=== PATIENT | male | born 1970 | race Caucasian/White ===

== ENCOUNTER 2024-09-11 10:29 | Emergency (ER) | payer SELFPAY ==
--- NOTE | ~2024-09-11 | XR_ITS ---
CHEST RADIOGRAPH, PA AND LATERAL CLINICAL HISTORY: cough WITH FEVER X 2 DAYS . COMPARISON: None available TECHNIQUE: PA and lateral views of the chest. FINDINGS The cardiomediastinal silhouette is unremarkable. Right upper lobe infiltrate. The remainder of the lungs are clear. IMPRESSION: Right upper lobe infiltrate Reviewed, dictated and finalized at location A. [facility]ROLOGY IMPRESSION: Right upper lobe infiltrate
[2024-09-11 10:31] VITALS: BP 119/70; PULSE 92; RESP 20; TEMP 36.3; O2SAT 98
[2024-09-11 13:05] VITALS: BP 105/65; PULSE 86; RESP 16; TEMP 36.8; O2SAT 97
--- NOTE | 2024-09-11 13:57 | ED.GENADULT ---
HPI - General Adult General Chief complaint: Unspecified Stated complaint: insomnia Time Seen by Provider: 09/11/24 15:41 Focused HPI: This is a 54-year-old male who presents to the ED for chief complaint of cough. States that he has productive cough and this is causing troubles with sleeping. States that he was admitted to another hospital a few weeks ago for drug overdose. He states that he has rib pain from CPR. He is currently at the rehab facility. GENERAL: Well-appearing, well-nourished, and in no acute distress. HEAD: Normocephalic, atraumatic. CHEST: Clear to auscultation. No respiratory distress. HEART: Regular rate and rhythm. NEURO: Alert and oriented x3. Patient screened in triage and initial orders placed. Additional care and disposition to be based upon diagnostic testing and treatment. Source: patient Mode of arrival: ambulatory Limitations: no limitations Related Data Allergies Allergy/AdvReac Type Severity Reaction Status Date / Time hydrocodone Allergy Intermediate Hives Verified 09/11/24 10:34 Course Vital Signs Vital signs: Vital Signs Temperature 97.4 F L 09/11/24 10:31 Pulse Rate 92 09/11/24 10:31 Respiratory Rate 20 09/11/24 10:31 Blood Pressure 119/70 09/11/24 10:31 Pulse Oximetry 98 09/11/24 10:31 Oxygen Delivery Room Air 09/11/24 10:31 Temperature 98.3 F 09/11/24 13:05 Pulse Rate 86 09/11/24 13:05 Respiratory Rate 16 09/11/24 13:05 Blood Pressure 105/65 09/11/24 13:05 Pulse Oximetry 97 09/11/24 13:05 Oxygen Delivery Room Air 09/11/24 10:31 Medical Decision Making Vital Signs Vital Signs: Vital Signs Temperature 97.4 F L 09/11/24 10:31 Pulse Rate 92 09/11/24 10:31 Respiratory Rate 20 09/11/24 10:31 Blood Pressure 119/70 09/11/24 10:31 Pulse Oximetry 98 09/11/24 10:31 Oxygen Delivery Room Air 09/11/24 10:31 Temperature 98.3 F 09/11/24 13:05 Pulse Rate 86 09/11/24 13:05 Respiratory Rate 16 09/11/24 13:05 Blood Pressure 105/65 09/11/24 13:05 Pulse Oximetry 97 09/11/24 13:05 Oxygen Delivery Room Air 09/11/24 10:31 Lab Data 09/11/24 15:41 09/11/24 15:41 Labs: Lab Results 09/11/24 Range/Units 15:41 WBC 12.5 H (4.5-10.0) K/mm3 RBC 3.78 L (4.6-6.20) M/mm3 Hgb 10.8 L (14.0-18.0) g/dL Hct 34.2 L (42.0-52.0) % MCV 90.5 (80-100) fl MCH 28.6 (26-34) pg MCHC 31.6 L (32-36) g/dl RDW 13.2 (11.5-14.5) % Plt Count 485 H (150-375) k/mm3 MPV 9.1 (7.4-10.4) fl Immature Gran % (Auto) 1.0 H (0-0.5) % Neut % (Auto) 67.7 (45.5-73.1) % Lymph % (Auto) 16.6 L (18.3-44.2) % [place] % (Auto) 8.3 (2.6-8.5) % Eos % (Auto) 5.9 H (0-4.4) % Baso % (Auto) 0.5 (0.2-1.2) % Lymph # (Auto) 2.07 (0.9-3.2) K/mm3 [place] # (Auto) 1.0 H (0.1-0.6) K/mm3 Eos # (Auto) 0.7 H (0-0.3) K/mm3 Baso # (Auto) 0.1 (0.0-0.1) K/mm3 Abs Immat Gran (auto) 0.12 H (0.00-0.031) K/mm3 Absolute Neuts (auto) 8.5 H (1.3-6.7) K/mm3 Absolute Nucleated RBC 0.000 (0.0-0.012) K/mm3 Nucleated RBC % 0.0 (0.0-0.2) % Sodium Pending Potassium Pending Chloride Pending Carbon Dioxide Pending Anion Gap Pending BUN Pending Creatinine Pending Estim Creat Clear Calc Pending Estimated GFR Pending Glucose Pending Calcium Pending Total Bilirubin Pending AST Pending ALT Pending Alkaline Phosphatase Pending NT-Pro-B Natriuret Pep Pending Total Protein Pending Albumin Pending Lipase Pending Discharge Plan Discharge Patient Language: Bulgarian Follow-up/Referrals: PHYSICIAN,ENGLISH LANGUAGE LEARNER TEACHER [Non-Staff] -
[2024-09-11 15:42] VITALS: RESP 17; O2SAT 100
--- NOTE | 2024-09-11 15:45 | ED.GENADULT ---
HPI - General Adult General Chief complaint: Unspecified Stated complaint: insomnia Time Seen by Provider: 09/11/24 15:41 Source: patient Mode of arrival: ambulatory Limitations: no limitations History of Present Illness HPI narrative: 54 YEARS OLD WHITE MALE CAME TO THE COMPLAINING OF NOT FEELING WELL, LIGHTHEADEDNESS, DIZZINESS, BLURRY VISION, STRESS ANXIETY. PATIENT WAS SEEN HIS PSYCHIATRIST YESTERDAY AND CHANGES MEDICATION. PATIENT BEEN COMPLAINING OF THE ABOVE SYMPTOMS SINCE HIS MEDICATION CHANGED. PATIENT ALSO BEEN COUGHING FOR THE LAST 4-5 WEEKS. PATIENT DENIES ANY FEVER, CHILLS, NAUSEA, VOMITING, DIARRHEA, CONSTIPATION, ABDOMINAL PAIN OR CHEST PAIN OR SHORTNESS OF BREATH. Related Data Allergies Allergy/AdvReac Type Severity Reaction Status Date / Time hydrocodone Allergy Intermediate Hives Verified 09/11/24 10:34 Review of Systems Review of Systems: All systems reviewed & are unremarkable except as noted in HPI and below Exam Narrative: GENERAL APPEARANCE: WELL-DEVELOPED, WELL-NOURISHED SKIN: NORMAL COLOR HEAD: NORMOCEPHALIC, NONTRAUMATIC EYES: CLEAR CONJUNCTIVA ENT: OROPHARYNX NORMAL, EARS NORMAL, NOSE NORMAL NECK: SUPPLE, NONTENDER CHEST AND RESPIRATORY: AIRWAY PATENT, FEW SCATTERED RHONCHI BILATERALLY, NO ACCESSORY MUSCLE USE HEART: REGULAR RATE/RHYTHM ABDOMEN: SOFT, NONTENDER, NO ORGANOMEGALY, QUIET BOWEL SOUNDS VASCULAR: NORMAL PERIPHERAL PULSES, NORMAL CAPILLARY REFILL. MUSCULOSKELETAL: NORMAL RANGE OF MOTION, NONTENDER BACK NEUROLOGIC: ALERT AND ORIENTED ?3, HYDRAULIC MINER BLASTING IS NORMAL TESTED, NO GROSS MOTOR DEFICIT Course Vital Signs Vital signs: Vital Signs Temperature 36.3 C L 09/11/24 10:31 Pulse Rate 92 09/11/24 10:31 Respiratory Rate 20 09/11/24 10:31 Blood Pressure 119/70 09/11/24 10:31 Pulse Oximetry 98 09/11/24 10:31 Oxygen Delivery Room Air 09/11/24 10:31 Temperature 36.8 C 09/11/24 13:05 Pulse Rate 86 09/11/24 13:05 Respiratory Rate 16 09/11/24 13:05 Blood Pressure 105/65 09/11/24 13:05 Pulse Oximetry 97 09/11/24 13:05 Oxygen Delivery Room Air 09/11/24 10:31 Medical Decision Making [facility] Narrative Medical decision making narrative: PATIENT CAME WITH ABOVE SYMPTOMS. PATIENT BILI SECONDARY TO PSYCH MEDICATION CHANGED YESTERDAY VITAL SIGNS ARE STABLE PHYSICAL EXAMINATION REMARKABLE FOR SCATTERED RHONCHI BILATERALLY BLOOD WORKUP TODAY INCLUDES CBC, CMP, LIPASE, BNP SHOWED WBC 12.5 PLATELET 485 ALKALINE PHOSPHATASE 137, OTHERWISE INSIGNIFICANT ABNORMALITY URINALYSIS SHOWED NO EVIDENCE CHEST X-RAY SHOWED RIGHT UPPER LOBE INFILTRATION DIAGNOSIS PNEUMONIA DISCHARGED ON AMOXICILLIN, ALBUTEROL Vital Signs Vital Signs: Vital Signs Temperature 36.3 C L 09/11/24 10:31 Pulse Rate 92 09/11/24 10:31 Respiratory Rate 20 09/11/24 10:31 Blood Pressure 119/70 09/11/24 10:31 Pulse Oximetry 98 09/11/24 10:31 Oxygen Delivery Room Air 09/11/24 10:31 Temperature 36.8 C 09/11/24 13:05 Pulse Rate 86 09/11/24 13:05 Respiratory Rate 16 09/11/24 13:05 Blood Pressure 105/65 09/11/24 13:05 Pulse Oximetry 97 09/11/24 13:05 Oxygen Delivery Room Air 09/11/24 10:31 Lab Data 09/11/24 15:41 09/11/24 15:41 Labs: Lab Results 09/11/24 09/11/24 Range/Units 15:41 15:48 WBC 12.5 H (4.5-10.0) K/mm3 RBC 3.78 L (4.6-6.20) M/mm3 Hgb 10.8 L (14.0-18.0) g/dL Hct 34.2 L (42.0-52.0) % MCV 90.5 (80-100) fl MCH 28.6 (26-34) pg MCHC 31.6 L (32-36) g/dl RDW 13.2 (11.5-14.5) % Plt Count 485 H (150-375) k/mm3 MPV 9.1 (7.4-10.4) fl Immature Gran % (Auto) 1.0 H (0-0.5) % Neut % (Auto) 67.7 (45.5-73.1) % Lymph % (Auto) 16.6 L (18.3-44.2) % [place] % (Auto) 8.3 (2.6-8.5) % Eos % (Auto) 5.9 H (0-4.4) % Baso % (Auto) 0.5 (0.2-1.2) % Lymph # (Auto) 2.07 (0.9-3.2) K/mm3 [place] # (Auto) 1.0 H (0.1-0.6) K/mm3 Eos # (Auto) 0.7 H (0-0.3) K/mm3 Baso # (Auto) 0.1 (0.0-0.1) K/mm3 Abs Immat Gran (auto) 0.12 H (0.00-0.031) K/mm3 Absolute Neuts (auto) 8.5 H (1.3-6.7) K/mm3 Absolute Nucleated RBC 0.000 (0.0-0.012) K/mm3 Nucleated RBC % 0.0 (0.0-0.2) % Sodium 138 (137-145) mmol/L Potassium 4.4 (3.4-5.0) mmol/L Chloride 99 (98-107) mmol/L Carbon Dioxide 30 (22-30) mmol/L Anion Gap 9 (4-12) mmol/L BUN 14 (9-20) mg/dL Creatinine 0.76 (0.7-1.3) mg/dL Estim Creat Clear Calc 103 ml/min Estimated GFR > 60 (59 - ) Glucose 98 (65-110) mg/dL Calcium 9.1 (8.4-10.2) mg/dL Total Bilirubin 0.3 (0.2-1.3) mg/dL AST 17 (17-59) U/L ALT 24 (6-50) U/L Alkaline Phosphatase 137 H (38-126) U/L NT-Pro-B Natriuret Pep 156 H (19.9-100) pg/mL Total Protein 8.0 (6.3-8.2) g/dL Albumin 3.9 (3.5-5.1) g/dL Lipase 20 L (23-300) U/L Urine Color Yellow (Yellow) Urine Appearance Clear (Clear) Urine pH 7.0 (5.0-9.0) Ur Specific [place] 1.016 (1.001-1.035) Urine Protein Negative (Negative) mg/dL Urine Glucose (UA) Negative (Negative) mg/dL Urine Ketones Negative (Negative) mg/dL Ur Blood (Man) Negative (Negative) Urine Nitrate Negative (Negative) Urine Bilirubin Negative (Negative) Urine Urobilinogen 1.0 (<2.0) mg/dL Leukocyte Esterase Rfl Negative (Negative) JAIME/UL Influenza A (RT-PCR) Pending Influenza B (RT-PCR) Pending RSV (RT-PCR) Pending SARS-CoV-2 RNA (RT-PCR) Pending Imaging Data Radiologist's impression: Impressions Chest X-Ray 09/11/24 14:33 IMPRESSION: Right upper lobe infiltrate Critical Care Time Critical Care Time Critical Care Time: No Discharge Plan Discharge Clinical Impression: Pneumonia Patient Disposition: Home, Self-Care Condition: Stable Instructions: Pneumonia (ED) Additional Instructions: RETURN IF SYMPTOMS ARE WORSENING , CALL YOUR FAMILY PHYSICIAN FOR APPOINTMENT, TAKE TYLENOL NEEDED FOR ACHES AND PAIN, CONTINUE HOME MEDICATIONS. Patient Language: Micronesian Prescriptions: New amoxicillin 500 mg tablet 1,000 mg PO Q8H Qty: 42 0RF albuterol sulfate 90 mcg/actuation HFA aerosol inhaler 2 puff inhalation QID PRN (Reason: shortness of breath or wheezing) Qty: 8.5 0RF Follow-up/Referrals: PHYSICIAN,INSPECTOR INSULATION [Non-Staff] - German Ann MD [Physician] - 09/14/24
[2024-09-11 15:49] LABS: Basophils Absolute Auto 0.1 K/mm3 (0.0-0.1); Basophils Percent Auto 0.5 % (0.2-1.2); Eosinophils Absolute Auto 0.7 K/mm3 (0-0.3); Eosinophils Percent Auto 5.9 % (0-4.4); Hematocrit 34.2 % (42.0-52.0); Hemoglobin 10.8 g/dL (14.0-18.0); Immature Granulocyte Absolute 0.12 K/mm3 (0.00-0.031); Lymphocytes Absolute Auto 2.07 K/mm3 (0.9-3.2); Lymphocytes Percent Auto 16.6 % (18.3-44.2); Mean Corpuscular HGB Conc 31.6 g/dl (32-36); Mean Corpuscular Hemoglobin 28.6 pg (26-34); Mean Corpuscular Volume 90.5 fl (80-100); Mean Platelet Volume 9.1 fl (7.4-10.4); Monocytes Percent Auto 8.3 % (2.6-8.5); Neutrophils Absolute Auto 8.5 K/mm3 (1.3-6.7); Neutrophils Percent Auto 67.7 % (45.5-73.1); Platelet Count Result 485 k/mm3 (150-375); Red Blood Count 3.78 M/mm3 (4.6-6.20); Red Cell Distribution Width 13.2 % (11.5-14.5); White Blood Count 12.5 K/mm3 (4.5-10.0)
[2024-09-11 16:01] LABS: Alanine Aminotransferase 24 U/L (6-50); Albumin Level 3.9 g/dL (3.5-5.1); Alkaline Phosphatase 137 U/L (38-126); Anion Gap 9 mmol/L (4-12); Aspartate Amino Transferase 17 U/L (17-59); Bilirubin,Total 0.3 mg/dL (0.2-1.3); Blood Urea Nitrogen 14 mg/dL (9-20); Calcium 9.1 mg/dL (8.4-10.2); Carbon Dioxide 30 mmol/L (22-30); Chloride 99 mmol/L (98-107); Estimated CRCL calculation 103 ml/min; Estimated Glomerular Filt Rate > 60; Glucose 98 mg/dL (65-110); Lipase 20 U/L (23-300); Potassium 4.4 mmol/L (3.4-5.0); Sodium 138 mmol/L (137-145)
[2024-09-11 16:06] LABS: Add Urine Microscopic? NO; Appearance Urine Clear (Clear); Bilirubin Urine Negative (Negative); Blood Urine Negative (Negative); Color Urine Yellow (Yellow); Glucose Urine UA Negative (Negative); Ketones Urine Negative (Negative); Leukocyte Esterase Ur Negative LEU/UL (Negative); Nitrate Urine Negative (Negative); Protein Urine Negative (Negative); Specific Grav Ur 1.016 (1.001-1.035)
[2024-09-11 16:09] LABS: NT Pro B Type Natriuretic Pept 156 pg/mL (19.9-100)
[2024-09-11 16:34] LABS: Influenza A QL RT-PCR Negative (Negative); Influenza B QL RT-PCR Negative (Negative); RSV RNA, RT-PCR Negative (Negative); SARS-CoV-2 RNA PCR Negative (Negative)
[2024-09-11] MEDS: levoFLOXacin 750 MG TABLET PO (17:03)
--- OUTSIDE RECORDS SUMMARY | 2024-09-11 18:18 | XMS_ITS | Referral Summary ---
Author Organization [facility] Address [address] [place] [id number] Care Team Providers Care Supervisor Corduroy Cutting Name Role Phone No, Provider Primary Care Provider Unavailabl e Miscellaneous, Not In File Unavailable Unava ilable Encounters Date Type Department Care Team Description 08/23/2024 [facility] Outreach [facility] Warm [facility] Off [facility] [address] [place] [address] Adela Lynn 08/13/2024 8:34 PM [employer] - 08/21/2024 12:11 PM [employer] Hospital Encounter [address] [address] Wilton Eng MD Bezuneh, MD [place] Thornton, Jean Anders MD Opioid withdrawal (HCC) (Primary Dx); Amphetamine abuse (HCC); Tinea cruris; Chest wall pain Discharge Disposition: Discharge to not defined facility 08/13/2024 [facility] Enrollment [facility] Warm [facility] Off [facility] [address] [place] [address] Flakita Enriquez 08/13/2024 [facility] Initial Eligibility [facility] [address] [place] [address] Flakita Enriquez from Last 3 Months Allergies Active Allergy Reactions Criticality Noted Date Comments Hydrocodone Itching,Rash Medium 08/11/2016 Reaction: ITCHING, Reaction: Rash, Reaction: ITCHING, Reaction: Rash, Medications tamsulosin (FLOMAX) 0.4 mg extended release capsule Take 1 capsule (0.4 mg total) by mouth daily with dinner 30 capsule 08/21/19 25 025 Active nicotine (NICODERM CQ) [address] 1 patch on the skin daily 30 patch 08/22/19 25 025 Active nicotine polacrilex (NICORETTE) 2 mg gum Chew 1 each (2 mg total) every 4 (four) hours as needed for smoking cessation 100 each 08/21/19 25 025 Active lidocaine (LIDODERM) 5 % Place 2 patches on the skin daily for 7 days Remove & discard patch within 12 hours or as directed by MD. 7 patch 08/21/19 25 Active meloxicam (MOBIC) 7.5 mg tablet Take 1 tablet (7.5 mg total) by mouth daily for 14 days 14 tablet 08/21/[address] (PROTONIX) 40 mg EC tabletIndications: Mucositis Prophylaxis Take 1 tablet (40 mg total) by mouth daily for 14 days 14 tablet 08/22/19 25 Active miconazole 2 % cream Apply topically 2 (two) times a day 28.35 g 08/21/19 25 Active hydrOXYzine (ATARAX) 50 mg tabletIndications: anxiety,lacrimatio n, rhinorrhea Take 1 tablet (50 mg total) by mouth 3 (three) times a day as needed for anxiety (lacrimation, rhinorrhea) for up to 7 days 21 tablet 08/21/19 25 Active acetaminophen 500 mg capsuleIndications :Pain Take 2 capsules (1,000 mg total) by mouth every 6 (six) hours 08/21/19 25 Active busPIRone (BUSPAR) 15 mg tabletIndications: Generalized Anxiety Disorder 02/24/20 17 025 Discontinu ed(Error) busPIRone (BUSPAR) 10 mg tabletIndications: Generalized Anxiety Disorder 12/30/19 17 025 Discontinu ed(Error) citalopram (CeleXA) 40 mg tablet 02/24/20 17 025 Discontinu ed(Error) citalopram (CeleXA) 20 mg tablet 11/25/19 17 025 Discontinu ed(Error) ondansetron ODT (ZOFRAN-ODT) 4 mg disintegrating tablet Take 4 mg by mouth every 6 hours. 08/11/19 17 025 Discontinu ed(Error) QUEtiapine (SEROquel) 100 mg tablet 01/27/20 17 025 Discontinu ed(Error) QUEtiapine (SEROquel) 50 mg tablet 11/25/19 17 025 Discontinu ed(Error) QUEtiapine (SEROquel) 200 mg tablet 02/24/20 17 025 Discontinu ed(Error) raNITIdine (ZANTAC) 150 mg tablet 02/04/20 17 025 Discontinu ed(Error) terbinafine (LamiSIL) 250 mg tablet 02/04/20 17 025 Discontinu ed(Error) meloxicam (MOBIC) 15 mg tablet Take 1 tablet (15 mg total) by mouth daily. 30 tablet 11 03/02/20 17 025 Discontinu ed(Stop Taking at Discharge) atorvastatin (LIPITOR) 20 mg tablet 09/21/19 18 025 Discontinu ed(Error) tamsulosin (FLOMAX) 0.4 mg extended release capsule 09/21/19 18 025 Discontinu ed(Error) traZODone (DESYREL) 100 mg tablet 09/21/19 18 025 Discontinu ed(Error) ibuprofen (ADVIL,MOTRIN) 800 mg tablet Take 1 tablet (800 mg total) by mouth 3 (three) times a day Take with food. 30 tablet 01/30/20 20 025 Discontinu ed(Error) methocarbamoL (ROBAXIN) 750 mg tabletIndications: Muscle Spasm Take 2 tablets (1,500 mg total) by mouth 3 (three) times a day as needed for muscle spasms for up to 7 days 42 tablet 08/21/19 25 025 Active Problems Problem Noted Date Diagnosed Date Tinea cruris 08/21/2024 Closed fracture of one rib of left side 08/21/19 Opioid withdrawal 08/13/2024 Social History Tobacco Use Types Packs/Day Years Used Date Smoking Tobacco: Every Day Smokeless Tobacco: Current [facility] Utilities Answer Date Recorded In the past 12 months has th e [employer], [employer], or [employer] threatened to shut off services in your home? No 08/14/2024 Social Connection and Isolation Panel [NHANES] A nswer Date Recorded In a typical week, how many times do you talk on the phone with family, friends, or neighbors? Three times a week 08/14/2024 How often do you get togethe r with friends or relatives? Three times a week 08/14/2024 How often do you attend chur ch or lutheran services? Never 08/14/2024 Do you belong to any clubs o r organizations such as rastafarian groups, unions, fraternal or athletic groups, or school groups? No 08/14/2024 How often do you attend meet ings of the clubs or organizations you belong to? Never 08/14/2024 Are you , , di vorced, , never , or living with a partner? Never 08/14/2024 Overall Financial Resource Strain (CARDIA) Answe r Date Recorded How hard is it for you to pa y for the very basics like food, housing, medical care, and heating? Somewhat hard 08/14/2024 Hunger Vital Sign Answer Date Recorded Within the past 12 months, y ou worried that your food would run out before you got the money to buy more. Never true 08/14/19 25 Within the past 12 months, t he food you bought just didn't last and you didn't have money to get more. Never true 08/14/2024 PRAPARE - Transportation Answer Date Re corded In the past 12 months, has l ack of transportation kept you from medical appointments or from getting medications? No 07/19 In the past 12 months, has l ack of transportation kept you from meetings, work, or from getting things needed for daily living? No 08/14/2024 Housing Stability Vital Sign Answer Vazquez e Recorded In the last 12 months, was t here a time when you were not able to pay the mortgage or rent on time? Yes 08/14/2024 In the past 12 months, how m any times have you moved where you were living? 2 08/14/2024 At any time in the past 12 m [facility], were you homeless or living in a retirement (including now)? No 08/14/2024 Personal Safety Answer Date Recorded Have you ever been in or are you currently in a harmful physical or emotional relationship or is someone making you feel afraid or unsafe? Denies 08/14/2024 Sex and Gender Information Value Date Recorded Sex Assigned at Not on file Legal Sex Male 5:32 AM [employer] Gender Identity Not on file Sexual Orientation Not on file Last Filed Vital Signs Vital Sign Reading Time Taken Comments Blood Pressure 108/76 08/21/2024 8:18 AM [employer] Pulse 77 08/21/2024 8:18 AM [employer] Temperature 36.8 C (98.2 F) 08/21/2024 8:18 AM [employer] Respiratory Rate 18 08/21/2024 8:18 AM [employer] Oxygen Saturation 97% 08/21/2024 8:18 AM [employer] Inhaled Oxygen Concentration - - Weight 63.5 kg (140 lb) 08/13/2024 11:50 PM [employer] Height 175.3 cm (5' 9 ) 08/13/2024 11:50 PM [employer] Body Mass Index 20.67 08/13/2024 11:50 PM [employer] Plan of Treatment Not on file Procedures Procedure Name Priority Date/Time Associated Diagnosis Comments CT CHEST WO CONTRAST IP Routine 08/17/2024 1:55 PM [employer] XR CHEST 1 VIEW IP Routine 08/17/2024 9:55 AM [employer] DIFFERENTIAL AUTO Routine 08/17/2024 8:3 2 AM [employer] CBC WITH AUTO DIFFERENTIAL Routine 08/17/2024 8:32 AM [employer] EGFR Routine 08/15/2024 9:24 AM [employer] BASIC METABOLIC PANEL Routine 08/15/2024 9:24 AM [employer] HIV 1/2 ANTIBODY PLUS P24 ANTIGEN Routine 08/14/2024 10:37 AM [employer] HEPATITIS PANEL, ACUTE Routine 08/14/2024 10:37 AM [employer] CBC WITHOUT DIFFERENTIAL Routine 08/14/2024 5:34 AM [employer] EGFR Routine 08/14/2024 4:37 AM [employer] COMPREHENSIVE METABOLIC PANEL Routine 08/14/2024 4:37 AM [employer] RPR STAT 08/13/2024 9:09 PM [employer] HIV 1/2 ANTIBODY PLUS P24 ANTIGEN STAT 08/13/2024 9:09 PM [employer] ECG 12-LEAD STAT 08/13/2024 9:00 PM [employer] TROPONIN T HIGH-SENSITIVITY STAT 08/13/2024 4:48 PM [employer] EGFR STAT 08/13/2024 4:48 PM [employer] DIFFERENTIAL AUTO STAT 08/13/2024 4:4 8 PM [employer] ETHANOL STAT 08/13/2024 4:48 PM [employer] CBC WITH AUTO DIFFERENTIAL STAT 08/13/2024 4:48 PM [employer] COMPREHENSIVE METABOLIC PANEL STAT 08/13/2024 4:48 PM [employer] FENTANYL CONFIRMATION, MS URINE STAT 08/13/2024 4:40 PM [employer] AMPHETAMINE, URINE, CONFIRMATION STAT 08/13/2024 4:40 PM [employer] DRUGS OF ABUSE SCREEN, URINE WITH REFLEX CONFIRMATION STAT 08/13/2024 4:40 PM [employer] XR CHEST PA LATERAL 2 VIEWS ED 08/13/2024 4:09 PM [employer] URINALYSIS, MICROSCOPIC ONLY STAT 08/13/2024 3:59 PM [employer] URINALYSIS AND REFLEX TO MICROSCOPIC AND CULTURE STAT 08/13/2024 3:59 PM [employer] N. GONORRHOEAE/C. TRACHOMATIS AMPLIFICATION STAT 08/13/2024 3:59 PM [employer] from Last 3 Months Results * CT Chest WO Contrast (08/17/2024 1:55 PM [employer]) Anatomical Region Laterality Modality Body N/A Computed Tomogra phy 08/17/2024 3:11 PM [employer] Narrative 08/17/2024 3:21 PM [employer] EXAM DESCRIPTION: CT CHEST WO CONTRAST REASON FOR STUDY: Hemoptysis Chest pain, rib pain post cardiac arrest with CPR compressions TECHNIQUE: CT scan of the chest performed without intravenous contrast using helical scanning technique. Reconstructed coronal and sagittal MPR images reviewed. All images stored on PACS. Automated exposure control was used as a dose optimization technique for this examination. COMPARISON: Same day chest radiograph FINDINGS: The sensitivity for detection of solid visceral lesions is diminished without the use of intravenous contrast. LUNGS: Focal nodular opacity in the superior segment of the right lower lobe measuring 2.8 cm. This was obscured on the same day chest radiograph due to overlapping soft tissues. There is surrounding ground-glass opacity mild pleuroparenchymal scarring. Trace mucous plugging in the right lower lobe. PLEURA: Trace right pleural effusion. No pneumothorax. MEDIASTINUM/CAPRI: No identified masses or abnormal nodes. HEART: Heart size is normal with no pericardial effusion. CORONARY ARTERY CALCIFICATION: Mild coronary artery calcification VASCULATURE: No thoracic aortic aneurysm. AXILLA: No adenopathy. CHEST WALL: No masses. No subcutaneous air. HARDWARE/LINES/TUBES: None. UPPER ABDOMEN: No significant abnormality. MUSCULOSKELETAL: There is mild chronic appearing wedging of multiple thoracic superior endplates. No acute fracture is identified. Acute nondisplaced single part fractures of the left anterolateral 3-6th ribs. Trace adjacent intramuscular hematomas are noted. OTHER: No other significant abnormality. IMPRESSION: Focal nodular opacity in the right lower lobe measuring 2.8 cm with surrounding ground-glass opacity. This is favored to represent an infectious/inflammatory process. Follow-up chest CT in 3 months to ensure resolution is recommended. Acute nondisplaced fractures of the left anterolateral 3-6th ribs. No pneumothorax. Trace right pleural effusion. Mild mucous plugging in the right lower lobe. THIS IS AN ELECTRONICALLY VERIFIED FINAL REPORT 08/17/2024 3:21 PM - Electronically signed by Daryl Betancourt M.D., MM T: Report ID: [id number] Reading Location: [place] [address] Procedure Note Daryl Betancourt MD - 08/17/2024 EXAM DESCRIPTION: CT CHEST WO CONTRAST REASON FOR STUDY: Hemoptysis Chest pain, rib pain post cardiac arrest with CPR compressions TECHNIQUE: CT scan of the chest performed without intravenous contrastusing helical scanning technique. Reconstructed coronal and sagittal MPR images reviewed. All images stored on PACS. Automated exposure control was usedas a dose optimization technique for this examination. COMPARISON: Same day chest radiograph FINDINGS: The sensitivity for detection of solid visceral lesions is diminished without the use of intravenous contrast. LUNGS: Focal nodular opacity in the superior segment of the right lowerlobe measuring 2.8 cm. This was obscured on the same day chest radiograph dueto overlapping soft tissues. There is surrounding ground-glass opacity mild pleuroparenchymal scarring. Trace mucous plugging in the right lowerlobe. PLEURA: Trace right pleural effusion. No pneumothorax. MEDIASTINUM/CAPRI: No identified masses or abnormal nodes. HEART: Heart size is normal with no pericardial effusion. CORONARY ARTERY CALCIFICATION: Mild coronary artery calcification VASCULATURE: No thoracic aortic aneurysm. AXILLA: No adenopathy. CHEST WALL: No masses. No subcutaneous air. HARDWARE/LINES/TUBES: None. UPPER ABDOMEN: No significant abnormality. MUSCULOSKELETAL: There is mild chronic appearing wedging of multiple thoracic superior endplates. No acute fracture is identified. Acute nondisplaced single part fractures of the left anterolateral 3-6th ribs. Trace adjacent intramuscular hematomas are noted. OTHER: No other significant abnormality. IMPRESSION: Focal nodular opacity in the right lower lobe measuring 2.8 cm with surrounding ground-glass opacity. This is favored to represent an infectious/inflammatory process. Follow-up chest CT in 3 months to ensure resolution is recommended. Acute nondisplaced fractures of the left anterolateral 3-6th ribs. No pneumothorax. Trace right pleural effusion. Mild mucous plugging in the right lower lobe. THIS IS AN ELECTRONICALLY VERIFIED FINAL REPORT 08/17/2024 3:21 PM - Electronically signed by Daryl Betancourt M.D., MM T: Report ID: [id number] Reading Location: [id number] Jono Goel MD [facility] PROCEDURES Candy l Result * XR Chest 1 View (08/17/2024 9:55 AM [employer]) Anatomical Region Laterality Modality Body, Chest N/A Computed Radiogr aphy 08/17/2024 12:2 1 PM [employer] Narrative 08/17/2024 12:22 PM [employer] EXAM DESCRIPTION: XR CHEST 1 VIEW REASON FOR STUDY: Hemoptysis and left-sided chest pain this morning. TECHNIQUE: 1 radiographic view(s) of the chest. COMPARISON: 08/13 FINDINGS: LUNGS: Clear HEART/MEDIASTINUM: Cardiac silhouette normal in size. Mediastinal and hilar contours appear normal. LINES/TUBES: None. BONES: No acute osseous abnormality. IMPRESSION: No acute cardiopulmonary abnormality. THIS IS AN ELECTRONICALLY VERIFIED FINAL REPORT 08/17/2024 12:22 PM - Electronically signed by Smita CLANCY T: Report ID: [id number] Reading Location: [id number] Procedure Note Smita Barrera MD - 08/17/2024 EXAM DESCRIPTION: XR CHEST 1 VIEW REASON FOR STUDY: Hemoptysis and left-sided chest pain this morning. TECHNIQUE: 1 radiographic view(s) of the chest. COMPARISON: 08/13 FINDINGS: LUNGS: Clear HEART/MEDIASTINUM: Cardiac silhouette normal in size. Mediastinal andhilar contours appear normal. LINES/TUBES: None. BONES: No acute osseous abnormality. IMPRESSION: No acute cardiopulmonary abnormality. THIS IS AN ELECTRONICALLY VERIFIED FINAL REPORT 08/17/2024 12:22 PM - Electronically signed by Smita Barrera M.D. LD T: Report ID: [id number] Reading Location: [id number] Jono Goel MD IMG XR PROCEDURES Candy l Result * Differential, auto (08/17/2024 8:32 AM [employer]) Pathologist [facility] Neutrophil abs 6.3 1.5 - 6.5 K/cumm Imm gran abs 0.1 0.0 - 0.1 K/cumm [facility] Lymphocyte abs 1.6 0.8 - 3.3 K/cumm [facility] Monocyte abs 0.7 0.2 - 0.8 K/cumm [facility] Eosinophil abs 0.3 0.0 - 0.5 K/cumm [facility] Basophil abs 0.0 0.0 - 0.1 K/cumm [facility] Neutrophil pct 69.8 % [facility] Comment: Interpretive Data Percent cell count reference ranges are not reported, since discordance with absolute values may lead to misinterpretation of CBC data. Current Interpretive Data was last revised on 2017. Imm gran pct 0.7 % [facility] Comment: Interpretive Data Percent cell count reference ranges are not reported, since discordance with absolute values may lead to misinterpretation of CBC data. Current Interpretive Data was last revised on 2017. Lymphocyte pct 18.2 % [facility] Comment: Interpretive Data Percent cell count reference ranges are not reported, since discordance with absolute values may lead to misinterpretation of CBC data. Current Interpretive Data was last revised on 2017. Monocyte pct 7.8 % [facility] Comment: Interpretive Data Percent cell count reference ranges are not reported, since discordance with absolute values may lead to misinterpretation of CBC data. Current Interpretive Data was last revised on 2017. Eosinophil pct 3.2 % [facility] Comment: Interpretive Data Percent cell count reference ranges are not reported, since discordance with absolute values may lead to misinterpretation of CBC data. Current Interpretive Data was last revised on 2017. Basophil pct 0.3 % [facility] Comment: Interpretive Data Percent cell count reference ranges are not reported, since discordance with absolute values may lead to misinterpretation of CBC data. Current Interpretive Data was last revised on 2017. Blood 08/17/2024 8:32 AM [employer] 08/17/2024 8:38 AM [employer] Jono Goel MD LAB BLOOD ORDERABLES F inal Result Performing Organization Address [facility] Co de Phone Number [address] [place] [address] * (ABNORMAL) CBC with auto differential (08/17/2024 8:32 AM [employer]) [facility] WBC 9.0 3.8 - 9.9 K/cumm Hgb 13.9 13.0 - 17.5 g/dL [facility] Hct 43.7 38.9 - 50.3 % [facility] Plt 320 150 - 400 K/cumm [facility] MPV 9.5 9.1 - 12.3 fL [facility] RBC 4.77 4.30 - 5.80 M/cumm [facility] MCV 91.6 81.3 - 96.4 fL [facility] MCH 29.1 27.1 - 33.3 pg [facility] MCHC 31.8(L) 32.3 - 35.7 g/dL [facility] RDW CV 13.5 11.1 - 14.9 % [facility] RDW SD 46.2 35.7 - 48.1 fL [facility] NRBC abs 0.00 0.00 - 0.01 K/cumm [facility] Blood 08/17/2024 8:32 AM [employer] 08/17/2024 8:38 AM [employer] Jono Goel MD LAB BLOOD ORDERABLES F inal Result Performing Organization Address [facility] Co de Phone Number [address] [place] [employer] [place] [address] * eGFR (08/15/2024 9:24 AM [employer]) [facility] eGFR >90 >=60 mL/min/1. 73 m2 Comment: Interpretive Data Reference Interval Normal >/= 90 mL/min/1.73m2 Mildly decreased* 60 - 89 mL/min/1.73m2 Mildly to moderately decreased 45 - 59 mL/min/1.73m2 Moderately to severely decreased 30 - 44 mL/min/1.73m2 Severely decreased 15 - 29 mL/min/1.73m2 Kidney Failure < 15 mL/min/1.73m2 *Relative to young adult level Estimated glomerular filtration rate is determined by the 2020 CKD-EPI equation recommended by the National Kidney Foundation (A Unifying Approach to GFR Estimation: Recommendations of the NKF-ASK Task Force on Reassessing the Inclusion of Race in Diagnosing Kidney Disease, JASN 2020). The CKD-EPI equation should not be used for patients with unstable renal function and has not been validated in children and those over 70. Current interpretive data was last reviewed 2021. Blood 08/15/2024 9:24 AM [employer] 08/15/2024 9:45 AM [employer] us Jono Goel MD LAB BLOOD ORDERABLES F inal Result [facility] [address] [facility] [place] [address] * Basic metabolic panel (08/15/2024 9:24 AM [employer]) Pathologist [facility] Sodium 139 135 - 145 mmol/L Potassium, pl 4.2 3.3 - 4.9 mmol/L [facility] Comment:Delta - Results Revi ewed Chloride 107 97 - 110 mmol/L [facility] CO2 24 22 - 32 mmol/L [facility] Anion gap 8 2 - 15 mmol/L [facility] BUN 9 6 - 25 mg/dL [facility] Creatinine 0.80 0.80 - 1.30 mg/dL [facility] Glucose 159 70 - 199 mg/dL [facility] Comment: Interpretive Data Fasting glucose >/= 126 mg/dl is diagnostic for diabetes. Fasting is defined as no caloric intake for at least 8 hours. Fasting glucose between 100 mg/dl to 125 mg/dl is diagnostic of prediabetes. In a patient with classic symptoms of hyperglycemia or hyperglycemic crisis, a random glucose >/= 200 mg/dl is diagnostic for diabetes. In the absence of unequivocal hyperglycemia, results should be confirmed by repeat testing. The classification and Diagnosis of Diabetes Diabetes Care 202; 46: S19-S40. Current interpretive data was last revised 2022. Calcium 8.6 8.5 - 10.3 mg/dL [facility] Blood 08/15/2024 9:24 AM [employer] 08/15/2024 9:45 AM [employer] Jono Goel MD LAB BLOOD ORDERABLES F inal Result Performing Organization Address [facility] Co de Phone Number [address] [address] * HIV 1/2 Antibody plus p24 Antigen Blood (08/14/2024 10:37 AM [employer]) HIV 1/2 ab + p24 ag Nonreactive Nonreactive Comment:Nonreactive for HIV- 1 antigen and HIV-1/HIV-2 antibodies. No laboratory evidence of HIV infection. If acute HIV infection is suspected, consider testing for HIV-1 RNA. Current interpretive data was last revised on 22. Blood 08/14/2024 10:3 7 AM [employer] 08/14/2024 10:58 AM [employer] Jono Goel MD LAB MICROBIOLOGY - GEN ERAL ORDERABLES Final Result Performing Organization Address [facility] de Phone Number [address] [address] * Hepatitis panel, acute Blood (08/14/2024 10:37 AM [employer]) Pathologist [facility] Hep A IgM Nonreactive Nonreactive Comment: Interpretive Data: If Hep A IgM Ab is reported as Equivocal, a new sample should be drawn in two weeks for testing. Current interpretive data was last revised on 19. Hep B core IgM Nonreactive Nonreactive [facility] Comment: Interpretive Data If HepB Core IgM Ab is reported as Equivocal, a new sample should be drawn in two weeks for testing. Current interpretive data was last revised on 19. Hep C Ab Nonreactive Nonreactive [facility] Comment: Antibodies to HCV not detected. Does NOT exclude the possibility of recent exposure to HCV. Current interpretive data was last revised on 22 Interpretive Data Nonreactive: Antibodies to HCV not detected. Does NOT exclude the possibility of recent exposure to HCV. Equivocal: Equivocal for HCV antibodies. Supplemental molecular testing will be automatically performed to determine infection status in accordance with current CDC screening recommendations. Reactive: Positive for HCV antibodies. This may represent current or past HCV infection. Supplemental molecular testing will be automatically performed to determine current infection status in accordance with current CDC screening recommendations. Interpretive data was last revised on 2019. HepBsAg Nonreactive Nonreactive [facility] Blood 08/14/2024 10:3 7 AM [employer] 08/14/2024 10:58 AM [employer] Jono Goel MD LAB MICROBIOLOGY - GEN ERAL ORDERABLES Final Result Performing Organization Address City/[facility] de Phone Number [facility] [address] [facility] [place] [address] * CBC without differential (08/14/2024 5:34 AM [employer]) WBC 4.9 3.8 - 9.9 K/cumm Hgb 14.2 13.0 - 17.5 g/dL [facility] Hct 43.0 38.9 - 50.3 % [facility] Plt 268 150 - 400 K/cumm [facility] MPV 9.4 9.1 - 12.3 fL [facility] RBC 4.81 4.30 - 5.80 M/cumm [facility] MCV 89.4 81.3 - 96.4 fL [facility] MCH 29.5 27.1 - 33.3 pg [facility] MCHC 33.0 32.3 - 35.7 g/dL [facility] RDW CV 13.6 11.1 - 14.9 % [facility] RDW SD 44.7 35.7 - 48.1 fL [facility] NRBC abs 0.00 0.00 - 0.01 K/cumm [facility] Blood 08/14/2024 5:34 AM [employer] 08/14/2024 5:44 AM [employer] Wilton Eng MD LAB BLOOD ORDER QUINCY Final Result Performing Organization Address City/[facility] de Phone Number [facility] [place] [address] * eGFR (08/14/2024 4:37 AM [employer]) [facility] eGFR >90 >=60 mL/min/1. 73 m2 Comment: Interpretive Data Reference Interval Normal >/= 90 mL/min/1.73m2 Mildly decreased* 60 - 89 mL/min/1.73m2 Mildly to moderately decreased 45 - 59 mL/min/1.73m2 Moderately to severely decreased 30 - 44 mL/min/1.73m2 Severely decreased 15 - 29 mL/min/1.73m2 Kidney Failure < 15 mL/min/1.73m2 *Relative to young adult level Estimated glomerular filtration rate is determined by the 2020 CKD-EPI equation recommended by the National Kidney Foundation (A Unifying Approach to GFR Estimation: Recommendations of the NKF-ASK Task Force on Reassessing the Inclusion of Race in Diagnosing Kidney Disease, JASN 2020). The CKD-EPI equation should not be used for patients with unstable renal function and has not been validated in children and those over 70. Current interpretive data was last reviewed 2021. Blood 08/14/2024 4:37 AM [employer] 08/14/2024 4:52 AM [employer] Wilton Eng MD LAB BLOOD ORDER QUINCY Final Result Performing Organization Address [facility] Co de Phone Number [facility] [address] [place] [address] * (ABNORMAL) Comprehensive metabolic panel (08/14/2024 4:37 AM [employer]) [facility] Sodium 140 135 - 145 mmol/L Potassium, pl 3.1(L) 3.3 - 4.9 mmol/L [facility] Chloride 105 97 - 110 mmol/L [facility] CO2 25 22 - 32 mmol/L [facility] Anion gap 10 2 - 15 mmol/L [facility] BUN 11 6 - 25 mg/dL [facility] Creatinine 0.96 0.80 - 1.30 mg/dL [facility] Glucose 127 70 - 199 mg/dL [facility] Comment: Interpretive Data Fasting glucose >/= 126 mg/dl is diagnostic for diabetes. Fasting is defined as no caloric intake for at least 8 hours. Fasting glucose between 100 mg/dl to 125 mg/dl is diagnostic of prediabetes. In a patient with classic symptoms of hyperglycemia or hyperglycemic crisis, a random glucose >/= 200 mg/dl is diagnostic for diabetes. In the absence of unequivocal hyperglycemia, results should be confirmed by repeat testing. The classification and Diagnosis of Diabetes Diabetes Care 202; 46: S19-S40. Current interpretive data was last revised 2022. Calcium 8.9 8.5 - 10.3 mg/dL [facility] Bilirubin, total 0.2 0.1 - 1.2 mg/dL [facility] Protein, pl 5.9(L) 6.5 - 8.5 g/dL [facility] Albumin 3.2(L) 3.5 - 5.0 g/dL [facility] Alk phos 79 40 - 130 Units/L [facility] ALT 25 7 - 55 Units/L [facility] AST 18 10 - 50 Units/L [facility] Blood 08/14/2024 4:37 AM [employer] 08/14/2024 4:52 AM [employer] Wilton Eng MD LAB BLOOD ORDER QUINCY Final Result [facility] [address] [facility] Department of Laboratories [place], [place] [id number] * HIV 1/2 Antibody plus p24 Antigen Blood (08/13/2024 9:09 PM [employer]) Pathologist [facility] HIV 1/2 ab + p24 ag Nonreactive Nonreactive Comment:Nonreactive for HIV- 1 antigen and HIV-1/HIV-2 antibodies. No laboratory evidence of HIV infection. If acute HIV infection is suspected, consider testing for HIV-1 RNA. Current interpretive data was last revised on 22. Blood 08/13/2024 9:09 PM [employer] 08/13/2024 9:14 PM [employer] us David MAYO LAB MICROBIOLOGY - GENERAL O RDERABLES Final Result [address] [place] [address] * RPR Blood (08/13/2024 9:09 PM [employer]) Pathologist [facility] RPR Nonreactive Nonreactive Comment:Testing performed by : [facility], [address] [place]., [address] Blood 08/13/2024 9:09 PM [employer] 08/14/2024 1:00 AM [employer] David MAYO LAB MICROBIOLOGY - GENERAL O RDERABLES Final Result Performing Organization Address [facility] Co de Phone Number [address] [place] [address] * ECG 12 lead (08/13/2024 9:00 PM [employer]) [facility] Ventricular Rate EKG/Min 105 BPM [facility] Atrial Rate 105 BPM [facility] AK-Interval (MSEC) 130 ms [facility] QRS-Interval (MSEC) 78 ms [facility] QT-Interval (MSEC) 308 ms [facility] QTc 407 ms [facility] P [place] 69 degrees [facility] R [place] 44 degrees [facility] T [place] 68 degrees [facility] Diagnosis Sinus tachycardia Otherwise normal ECG No previous ECGs available Confirmed by MISAEL GARCIA M.D. ([id number]) on 08/15/2024 9:30:30 PM [facility] 08/13/2024 9:00 PM [employer] 08/15/2024 9:30 PM [employer] David MAYO ECG ORDERABLES Final Result Performing Organization Address City/[facility] Co de Phone Number [facility] * Troponin T high-sensitivity (08/13/2024 4:48 PM [employer]) Pathologist [facility] Trop T hs 6 <=22 ng/L Comment: Interpretive Data For further hscTnT resources including the diagnostic algorithm and an aid in interpretation, copy and paste this link: https://nrl.testcatalog.org/show/[email or web address] Current Interpretive Data last revised 2020. Blood 08/13/2024 4:48 PM [employer] 08/13/2024 4:52 PM [employer] Wilton Eng MD LAB BLOOD ORDER QUINCY Final Result Performing Organization Address [facility] Co de Phone Number [facility] [address] [place] [employer] [place] [address] * eGFR (08/13/2024 4:48 PM [employer]) eGFR >90 >=60 mL/min/1. 73 m2 Comment: Interpretive Data Reference Interval Normal >/= 90 mL/min/1.73m2 Mildly decreased* 60 - 89 mL/min/1.73m2 Mildly to moderately decreased 45 - 59 mL/min/1.73m2 Moderately to severely decreased 30 - 44 mL/min/1.73m2 Severely decreased 15 - 29 mL/min/1.73m2 Kidney Failure < 15 mL/min/1.73m2 *Relative to young adult level Estimated glomerular filtration rate is determined by the 2020 CKD-EPI equation recommended by the National Kidney Foundation (A Unifying Approach to GFR Estimation: Recommendations of the NKF-ASK Task Force on Reassessing the Inclusion of Race in Diagnosing Kidney Disease, JASN 202). The CKD-EPI equation should not be used for patients with unstable renal function and has not been validated in children and those over 70. Current interpretive data was last reviewed 2021. Blood 08/13/2024 4:48 PM [employer] 08/13/2024 4:52 PM [employer] Wilton Eng MD LAB BLOOD ORDER QUINCY Final Result Performing Organization Address [facility] Co de Phone Number DIA[address] [place] [employer] [place] [address] * (ABNORMAL) Differential, auto (08/13/2024 4:48 PM [employer]) Pathologist [facility] Neutrophil abs 4.9 1.5 - 6.5 K/cumm Imm gran abs 0.0 0.0 - 0.1 K/cumm [facility] Lymphocyte abs 1.1 0.8 - 3.3 K/cumm [facility] Monocyte abs 1.0(H) 0.2 - 0.8 K/cumm [facility] Eosinophil abs 0.1 0.0 - 0.5 K/cumm [facility] Basophil abs 0.0 0.0 - 0.1 K/cumm [facility] Neutrophil pct 68.8 % [facility] Comment: Interpretive Data Percent cell count reference ranges are not reported, since discordance with absolute values may lead to misinterpretation of CBC data. Current Interpretive Data was last revised on 2017. Imm gran pct 0.6 % [facility] Comment: Interpretive Data Percent cell count reference ranges are not reported, since discordance with absolute values may lead to misinterpretation of CBC data. Current Interpretive Data was last revised on 2017. Lymphocyte pct 15.6 % [facility] Comment: Interpretive Data Percent cell count reference ranges are not reported, since discordance with absolute values may lead to misinterpretation of CBC data. Current Interpretive Data was last revised on 2017. Monocyte pct 13.5 % [facility] Comment: Interpretive Data Percent cell count reference ranges are not reported, since discordance with absolute values may lead to misinterpretation of CBC data. Current Interpretive Data was last revised on 2017. Eosinophil pct 1.1 % [facility] Comment: Interpretive Data Percent cell count reference ranges are not reported, since discordance with absolute values may lead to misinterpretation of CBC data. Current Interpretive Data was last revised on 2017. Basophil pct 0.4 % [facility] Comment: Interpretive Data Percent cell count reference ranges are not reported, since discordance with absolute values may lead to misinterpretation of CBC data. Current Interpretive Data was last revised on 2017. Blood 08/13/2024 4:48 PM [employer] 08/13/2024 4:52 PM [employer] Wilton Eng MD LAB BLOOD ORDER QUINCY Final Result Performing Organization Address [facility] Co de Phone Number [facility] [address] [address] * CBC with auto differential (08/13/2024 4:48 PM [employer]) WBC 7.1 3.8 - 9.9 K/cumm Hgb 16.1 13.0 - 17.5 g/dL [facility] Hct 49.4 38.9 - 50.3 % [facility] Plt 298 150 - 400 K/cumm [facility] MPV 9.6 9.1 - 12.3 fL [facility] RBC 5.41 4.30 - 5.80 M/cumm [facility] MCV 91.3 81.3 - 96.4 fL [facility] MCH 29.8 27.1 - 33.3 pg [facility] MCHC 32.6 32.3 - 35.7 g/dL [facility] RDW CV 13.7 11.1 - 14.9 % [facility] RDW SD 46.2 35.7 - 48.1 fL [facility] NRBC abs 0.00 0.00 - 0.01 K/cumm [facility] Blood 08/13/2024 4:48 PM [employer] 08/13/2024 4:52 PM [employer] Wilton Eng MD LAB BLOOD ORDER QUINCY Final Result Performing Organization Address [facility] Co de Phone Number [facility] [address] [place] [address] * Ethanol (08/13/2024 4:48 PM [employer]) Ethanol <10 <=10 mg/dL Comment: Interpretive Data Legal limit of intoxication > or = 80 mg/dL Levels > or = 400 mg/dL are potentially TOXIC. Current interpretive data was last revised on 2018. Blood 08/13/2024 4:48 PM [employer] 08/13/2024 4:52 PM [employer] Wilton Eng MD LAB BLOOD ORDER QUINCY Final Result [facility] [address] [facility] [place] [address] * Comprehensive metabolic panel (08/13/2024 4:48 PM [employer]) Sodium 140 135 - 145 mmol/L Potassium, pl 4.4 3.3 - 4.9 mmol/L [facility] Chloride 102 97 - 110 mmol/L [facility] CO2 28 22 - 32 mmol/L [facility] Anion gap 10 2 - 15 mmol/L [facility] BUN 8 6 - 25 mg/dL [facility] Creatinine 0.92 0.80 - 1.30 mg/dL [facility] Glucose 111 70 - 199 mg/dL [facility] Comment: Interpretive Data Fasting glucose >/= 126 mg/dl is diagnostic for diabetes. Fasting is defined as no caloric intake for at least 8 hours. Fasting glucose between 100 mg/dl to 125 mg/dl is diagnostic of prediabetes. In a patient with classic symptoms of hyperglycemia or hyperglycemic crisis, a random glucose >/= 200 mg/dl is diagnostic for diabetes. In the absence of unequivocal hyperglycemia, results should be confirmed by repeat testing. The classification and Diagnosis of Diabetes Diabetes Care 202; 46: S19-S40. Current interpretive data was last revised 2022. Calcium 9.5 8.5 - 10.3 mg/dL [facility] Bilirubin, total 0.3 0.1 - 1.2 mg/dL [facility] Protein, pl 7.2 6.5 - 8.5 g/dL [facility] Albumin 3.9 3.5 - 5.0 g/dL [facility] Alk phos 90 40 - 130 Units/L [facility] ALT 32 7 - 55 Units/L [facility] AST 22 10 - 50 Units/L [facility] Blood 08/13/2024 4:48 PM [employer] 08/13/2024 4:52 PM [employer] Wilton Eng MD LAB BLOOD ORDER QUINCY Final Result [facility] [address] [facility] [place] [address] * (ABNORMAL) Fentanyl Confirmation, Urine (08/13/2024 4:40 PM [employer]) Fentanyl Conf, Ur Does Not Confirm Cutoff 0.3ng/mL Comment:Testing performed by : [facility], [address] [place]., [address] Acetylfentanyl Conf, Ur Does Not Confirm Cutoff 1 ng/mL [facility] Comment:Testing performed by : [facility], [address] [place]., [address] Acrylfentanyl Conf, Ur Does Not Confirm Cutoff 1 ng/mL [facility] Comment:Testing performed by : [facility], [address] [place] [address] Furanylfentanyl Conf, Ur Does Not Confirm Cutoff 1 ng/mL [facility] Comment:Testing performed by : [facility], [address] [place]., [address] Fentanyl Metabolite (Norfentanyl) Conf, Ur Confirmed Positive(A) CutOff 5 ng/mL [facility] Comment:Testing performed by : [facility], [address] [place]., [address] Xylazine MS Does Not Confirm Cutoff 1 ng/mL [facility] Comment: Interpretive Data This test detects the presence or absence of drug compounds using LC Tandem mass spectrometry and is not intended to assess compliance with prescribed medications. While this test is highly specific, false positive and false negative results may occur in very rare circumstances. Contact the laboratory for consultation, if needed. Performance characteristics were determined by the [facility] in a manner consistent with CLIA requirement and has not been cleared or approved by the U.S. Food and Drug Administration. Current interpretive data was last revised 2020. Testing performed by: [facility], [address] [place]., [address] Urine 08/13/2024 4:40 PM [employer] 08/13/2024 7:29 PM [employer] us Kassandra Kearney MD LAB URINE ORDERABLES F inal Result [facility] [address] [facility] [place] [address] * (ABNORMAL) Drugs of Abuse Screen, Urine with Reflex Confirmation (08/13/2024 4:40 PM [employer]) Amphetamine, ur Screen Positive, presumptive (A) CutOff 500ng/mL Comment: Interpretive Data - Amphetamines: Samples containing greater than 500 ng/mL d-methamphetamine or other cross-reacting amphetamine compounds are reported as positive. Amphetamine immunoassays are subject to significant false positive rates due to cross-reactivity of non-amphetamine drugs. Confirmatory testing required for definitive results. Current Interpretive Data was last reviewed 2023. Barbiturates, ur Not Detected CutOff 200ng/mL [facility] Comment: Interpretive Data - Barbiturates: Samples containing greater than 200 ng/mL secobarbital or other cross-reacting barbiturate compounds are reported as positive. False positive and false negative results are possible. Confirmatory testing required for definitive results. Current Interpretive Data was last reviewed 2023. Benzodiazepines, ur Not Detected CutOff 100ng/mL [facility] Comment: Interpretive Data - Benzodiazepines: Samples containing greater than 100 ng/mL nordiazepam or other cross-reacting compounds are reported as positive. False positive and false negative results are possible. Confirmatory testing required for definitive results. Current Interpretive Data was last reviewed 2023. Cannabinoids, ur Not Detected CutOff 50 ng/mL [facility] Comment: Interpretive Data - Cannabinoids: Samples containing greater than 50 ng/mL delta-9 THC -COOH or other cross- reacting compounds are reported as positive. False positive and false negative results are possible. Confirmatory testing required for definitive results. Current Interpretive Data was last reviewed 2023. Cocaine, ur Not Detected CutOff 150ng/mL [facility] Comment: Interpretive Data - Cocaine: Samples containing greater than 150 ng/mL benzoylecgonine or other cross- reacting compounds are reported as positive. False positive and false negative results are possible. Confirmatory testing required for definitive results. Current Interpretive Data was last reviewed 2023. Fentanyl, Ur Screen Positive, presumptive (A) CutOff 5 ng/mL [facility] Comment: Interpretive Data - Fentanyl: Samples containing greater than 5 ng/mL norfentanyl, fentanyl, or other cross-reacting fentanyl compounds are reported as positive. False positive and false negative results are possible. Confirmatory testing required for definitive results. Current Interpretive Data was last reviewed 2023. Methadone, ur Not Detected CutOff 300ng/mL [facility] Comment: Interpretive Data - Methadone: Samples containing greater than 300 ng/mL d,l-methadone or other cross-reacting compounds are reported as positive. False positive and false negative results are possible. Confirmatory testing required for definitive results. Current Interpretive Data was last reviewed 2023. Opiates, ur Not Detected CutOff 300ng/mL [facility] Comment: Interpretive Data - Opiates: Samples containing greater than 300 ng/mL morphine or other cross-reacting compounds are reported as positive. False positive and false negative results are possible. Confirmatory testing required for definitive results. Current Interpretive Data was last reviewed 2023. Oxycodone, ur Not Detected CutOff 100ng/mL [facility] Comment: Interpretive Data - Oxycodone: Samples containing greater than 100 ng/mL oxycodone or other cross-reacting compounds are reported as positive. False positive and false negative results are possible. Confirmatory testing required for definitive results. Current Interpretive Data was last reviewed 2023. Phencyclidine, ur Not Detected CutOff 25 ng/mL [facility] Comment: Interpretive Data - Phencyclidine: Samples containing greater than 25 ng/mL phencyclidine or other cross-reacting compounds are reported as positive. False positive and false negative results are possible. Confirmatory testing required for definitive results. Current Interpretive Data was last reviewed 2023. Urine Creatinine 158 mg/dL [facility] Comment: Interpretive Data Urine Creatinine: < 10 mg/dL is extremely dilute = or > 10 but < 20 mg/dL is dilute = or > 20 mg/dL is normal Current Interpretive Data was last revised on 2017. Urine 08/13/2024 4:40 PM [employer] 08/13/2024 4:42 PM [employer] Narrative [facility] - 08/13/2024 5:13 PM [employer] Drug of Abuse screening is performed by immunoassay for medical purposes only. This is not to be used for Pain Management purposes. If Detected, confirmation testing will be performed for Amphetamines, Cocaine, Fentanyl, Methadone, Opiates, Oxycodone or Phencyclidine. Wilton Eng MD LAB URINE ORDER QUINCY Final Result [facility] [address] [facility] [place] [address] * (ABNORMAL) Amphetamine Confirmation, Urine (08/13/2024 4:40 PM [employer]) Amphetamine Conf, Ur Confirmed Positive(A) CutOff 150ng/mL Comment:Testing performed by : [facility], [address] [place] [address] Methamphetamine Conf, Ur Confirmed Positive(A) CutOff 150ng/mL [facility] Comment:Testing performed by : [facility], [address] [place] [address]., [address] MDA Conf, Ur Does Not Confirm CutOff 150ng/mL [facility] Comment:Testing performed by : [facility], [address] [place] [address] MDMA Conf, Ur Does Not Confirm CutOff 50 ng/mL [facility] Comment:Testing performed by : [facility], [address] [place]., [address] MDEA Conf, Ur Does Not Confirm CutOff 150ng/mL [facility] Comment:Testing performed by : [facility], [address] [place] [address] MBDB Conf, Ur Does Not Confirm CutOff 150ng/mL [facility] Comment: Interpretive Data This test detects the presence or absence of drug compounds using LC Tandem mass spectrometry. While this test is highly specific, false positive and false negative results may occur in very rare circumstances. Contact the laboratory for consultation, if needed. Performance characteristics were determined by the [facility] in a manner consistent with CLIA requirement and has not been cleared or approved by the U.S. Food and Drug Administration. Current interpretive data was last revised on 2020. Testing performed by: [facility], [address] [facility], [place]., [address] Urine 08/13/2024 4:40 PM [employer] 08/13/2024 7:29 PM [employer] us Kassandra Kearney MD LAB URINE ORDERABLES F inal Result [facility] [address] [facility] [place] [address] * XR Chest Pa Lateral 2 Views (08/13/2024 4:09 PM [employer]) Anatomical Region Laterality Modality Body, Chest N/A Computed Radiogr aphy 08/13/2024 4:19 PM [employer] Narrative 08/13/2024 4:20 PM [employer] EXAM DESCRIPTION: XR CHEST PA LATERAL 2 VIEWS REASON FOR STUDY: chest wall pain Pt complains of chest wall pain since his girlfriend did cpr on 08/09/2024 after an drug overdose TECHNIQUE: Frontal and lateral radiographic view(s) of the chest. COMPARISON: None FINDINGS: The heart, mediastinum, and pulmonary vasculature are grossly unremarkable. There is no definite evidence of a pneumothorax. There is mild biapical pleural thickening and scarring. There is no definite evidence of focal consolidation or pleural effusion. The lungs are mildly hyperinflated. There is a minimal to mild dextroscoliotic curvature of the spine with degenerative changes. IMPRESSION: Mildly hyperinflated lungs without definite evidence of acute cardiopulmonary process. THIS IS AN ELECTRONICALLY VERIFIED FINAL REPORT 08/13/2024 4:20 PM - Electronically signed by Janiya Anne D.O. PS T: Report ID: [id number] Reading Location: [id number] Procedure Note Janiya Anne, - 08/13/2024 EXAM DESCRIPTION: XR CHEST PA LATERAL 2 VIEWS REASON FOR STUDY: chest wall pain Pt complains of chest wall pain since his girlfriend did cpr on 08/09/2024 after an drug overdose TECHNIQUE: Frontal and lateral radiographic view(s) of the chest. COMPARISON: None FINDINGS: The heart, mediastinum, and pulmonary vasculature are grossly unremarkable. There is no definite evidence of a pneumothorax. There ismild biapical pleural thickening and scarring. There is no definite evidenceof focal consolidation or pleural effusion. The lungs are mildlyhyperinflated. There is a minimal to mild dextroscoliotic curvature of the spine with degenerative changes. IMPRESSION: Mildly hyperinflated lungs without definite evidence of acutecardiopulmonary process. THIS IS AN ELECTRONICALLY VERIFIED FINAL REPORT 08/13/2024 4:20 PM - Electronically signed by Janiya Anne D.O. PS T: Report ID: [id number] Reading Location: [place] [address] Wilton Eng MD IMG XR PROCEDUR ES Final Result * N. gonorrhoeae/C. trachomatis Amplification Urine (08/13/2024 3:59 PM [employer]) Pathologist [facility] C. trachomatis Not Detected Not Detected N. gonorrhoeae Not Detected Not Detected [facility] Comment: Interpretive Data This assay detects Chlamydia trachomatis and Neisseria gonorrhoeae by nucleic acid amplification testing (NAAT). This assay has been cleared by the [place] Food and Drug administration. The performance characteristics of this test have been verified by the [facility]. The performance characteristics of this test have not been evaluated in individuals less than 14 years of age. Current Interpretive Data last revised 2023. Urine (None) 08/13/2024 3:5 9 PM [employer] 08/13/2024 4:09 PM [employer] Wilton Eng MD LAB MICROBIOLOG Y - GENERAL ORDERABLES Final Result [facility] [address] [facility] [place] [address] * (ABNORMAL) Urinalysis reflex to microscopic and culture Urine (08/13/2024 3:59 PM [employer]) Color, ur Yellow Yellow Clarity, ur Clear Clear [facility] Specific gravity, ur 1.019 1.003 - 1.030 [facility] pH, urine 6.5 [facility] Comment: Interpretive Data U rine pH is affected by diet, medications, systemic acid-base disturbances, and renal tubular function. pH may affect urinary stone formation. For example, urine pH below 6.0 may help reduce the tendency for calcium phosphate stones and pH greater than 6.0 may reduce the tendency for uric acid stone formation. Source: [facility] Current Interpretive Data was last revised on 2017 Protein, ur ql Negative Negative [facility] Glucose, ur ql Negative Negative [facility] Ketones, ur Negative Negative [facility] Bilirubin, ur Negative Negative [facility] Blood, ur 1+(A) Negative [facility] Urobilinogen, ur <2.0 <2.0 mg/dL [facility] Nitrite, ur Negative Negative [facility] Leukocyte esterase, ur Negative Negative [facility] UA reflex comment Reflex to microscopic UA will be performed. [facility] Urine 08/13/2024 3:59 PM [employer] 08/13/2024 4:09 PM [employer] Wilton Eng MD LAB MICROBIOLOG Y - GENERAL ORDERABLES Final Result Performing Organization Address City/[facility] Co ma Phone Number [facility] [address] [facility] Department [place] [address] * (ABNORMAL) Urinalysis, microscopic only (08/13/2024 3:59 PM [employer]) WBC, ur 0-5 0 - 5 /HPF RBC, ur 11-20(A) 0 - 2 /HPF [facility] Epithelial cells, squamous, ur 1-5 0 - 5 /HPF [facility] Mucous, ur Present(A) [facility] Culture Reflex Comment Reflex conditions for urine culture (WBC >10) not met. [facility] Urine 08/13/2024 3:59 PM [employer] 08/13/2024 4:09 PM [employer] Wilton Eng MD LAB URINE ORDER QUINCY Final Result [facility] [address] [facility] [place] [address] from Last 3 Months Insurance [facility] MEDICAID [facility] Advance Directives For more information, please contact: [phone] * Full Code (Latest Code Status on File) Date Activated Date Inactivated Comments 08/13/2024 10:32 PM 08/21/2024 4:40 PM Care Teams Supervisor [employer] Relationship Specialty Start Date End Date No, Provider PCP - General 8/23/22 Miscellaneous, Not In File 08/21/24
--- OUTSIDE RECORDS SUMMARY | 2024-09-11 18:18 | XMS_ITS | Clinical Summary ---
Author Organization [facility] [address] [place] [address] [place] [phone] Care Team Providers Care Ferryboat Deckhand Name Role Phone No, Provider Primary Care Provider Unavailabl e Miscellaneous, Not In File Unavailable Unava ilable Allergies Active Allergy Reactions Criticality Noted Date [...] within 12 hours or as directed by . 7 patch 08/21/19 25 Active meloxicam (MOBIC) [...] of one rib of left side 08/21/19 25 Opioid withdrawal 08/13/2024 Encounters Date Type Department Care Team Description 08/23/2024 [facility] Outreach [facility] Warm Hand Off Program [address] [place] [address] Adela Lynn 08/13/2024 8:34 PM LAND SURVEYOR MANAGER - 08/21/2024 12:11 PM LAND SURVEYOR MANAGER Hospital Encounter [address] [address] Wilton Eng MD Bezuneh, MD Villa Thornton, Jean Anders MD Opioid withdrawal (HCC) (Primary Dx); Amphetamine abuse (HCC); Tinea cruris; Chest wall pain Discharge Disposition: Discharge to not defined facility 08/13/2024 [facility] Enrollment [facility] [address] [place], [place] [phone] Flakita Enriquez 08/13/2024 [facility] Initial Eligibility [facility] [address] [place], [place] [phone] Flakita Enriquez from Last 3 Months Medical History Medical History Date Comments Depression Depression Hx Other Medical Bilpolar Disord er; Comments: ALICIA 09/27/2016 - Social History Tobacco Use Types Packs/Day Years Used Date Smoking Tobacco: Every Day Smokeless Tobacco: Current [facility] Utilities Answer Date Recorded In the past 12 months has th e electric, gas, oil, or water company threatened to shut off services in your [...] often do you attend chur ch or judaism services? Never 08/14/2024 Do you belong to any clubs o r organizations such as denominational groups, unions, fraternal or athletic groups, or [...] any time in the past 12 m [facility], were you homeless or living in a detention (including now)? No 08/14/2024 Personal Safety Answer Date Recorded Have you ever been in or are you currently in a harmful physical or emotional relationship or is someone making you feel afraid or unsafe? Denies 08/14/2024 Sex and Gender Information Value Date Recorded Sex Assigned at Not on file Legal Sex Male 5:32 AM LAND SURVEYOR MANAGER Gender Identity Not on file Sexual Orientation Not on file Obstetrics History Last Filed Vital Signs Vital Sign Reading Time Taken Comments Blood Pressure 108/76 08/21/2024 8:18 AM LAND SURVEYOR MANAGER Pulse 77 08/21/2024 8:18 AM LAND SURVEYOR MANAGER Temperature 36.8 C (98.2 F) 08/21/2024 8:18 AM LAND SURVEYOR MANAGER Respiratory Rate 18 08/21/2024 8:18 AM LAND SURVEYOR MANAGER Oxygen Saturation 97% 08/21/2024 8:18 AM LAND SURVEYOR MANAGER Inhaled Oxygen Concentration - - Weight 63.5 kg (140 lb) 08/13/2024 11:50 PM LAND SURVEYOR MANAGER Height 175.3 cm (5' 9 ) 08/13/2024 11:50 PM LAND SURVEYOR MANAGER Body Mass Index 20.67 08/13/2024 11:50 PM LAND SURVEYOR MANAGER Plan of Treatment Health Maintenance Due Date Last Done Comments Colon Cancer Screening-Colonoscopy 1971 Depression Screening 1971 Prostate Cancer Screening-PSA 1971 Regular Well Visit/Exam 18-64 1989 Pneumococcal vaccine <65 (1 of 2 - PCV) 1990 Zoster Vaccine (1 of 2) 2021 Influenza Vaccine (#1) 2024 DTaP/Tdap/Td Vaccine (2 - Td or Tdap) 09/28/2025 Hepatitis B Screening Completed 09/29/2015 Hepatitis C Screening Completed 08/14/2024 Procedures Procedure Name Priority Date/Time Associated Diagnosis Comments CT CHEST WO CONTRAST IP Routine 08/17/2024 1:55 PM LAND SURVEYOR MANAGER XR CHEST 1 VIEW IP Routine 08/17/2024 9:55 AM LAND SURVEYOR MANAGER DIFFERENTIAL AUTO Routine 08/17/2024 8:3 2 AM LAND SURVEYOR MANAGER CBC WITH AUTO DIFFERENTIAL Routine 08/17/2024 8:32 AM LAND SURVEYOR MANAGER EGFR Routine 08/15/2024 9:24 AM LAND SURVEYOR MANAGER BASIC METABOLIC PANEL Routine 08/15/2024 9:24 AM LAND SURVEYOR MANAGER HIV 1/2 ANTIBODY PLUS P24 ANTIGEN Routine 08/14/2024 10:37 AM LAND SURVEYOR MANAGER HEPATITIS PANEL, ACUTE Routine 08/14/2024 10:37 AM LAND SURVEYOR MANAGER CBC WITHOUT DIFFERENTIAL Routine 08/14/2024 5:34 AM LAND SURVEYOR MANAGER EGFR Routine 08/14/2024 4:37 AM LAND SURVEYOR MANAGER COMPREHENSIVE METABOLIC PANEL Routine 08/14/2024 4:37 AM LAND SURVEYOR MANAGER RPR STAT 08/13/2024 9:09 PM LAND SURVEYOR MANAGER HIV 1/2 ANTIBODY PLUS P24 ANTIGEN STAT 08/13/2024 9:09 PM LAND SURVEYOR MANAGER ECG 12-LEAD STAT 08/13/2024 9:00 PM LAND SURVEYOR MANAGER TROPONIN T HIGH-SENSITIVITY STAT 08/13/2024 4:48 PM LAND SURVEYOR MANAGER EGFR STAT 08/13/2024 4:48 PM LAND SURVEYOR MANAGER DIFFERENTIAL AUTO STAT 08/13/2024 4:4 8 PM LAND SURVEYOR MANAGER ETHANOL STAT 08/13/2024 4:48 PM LAND SURVEYOR MANAGER CBC WITH AUTO DIFFERENTIAL STAT 08/13/2024 4:48 PM LAND SURVEYOR MANAGER COMPREHENSIVE METABOLIC PANEL STAT 08/13/2024 4:48 PM LAND SURVEYOR MANAGER FENTANYL CONFIRMATION, MS URINE STAT 08/13/2024 4:40 PM LAND SURVEYOR MANAGER AMPHETAMINE, URINE, CONFIRMATION STAT 08/13/2024 4:40 PM LAND SURVEYOR MANAGER DRUGS OF ABUSE SCREEN, URINE WITH REFLEX CONFIRMATION STAT 08/13/2024 4:40 PM LAND SURVEYOR MANAGER XR CHEST PA LATERAL 2 VIEWS ED 08/13/2024 4:09 PM LAND SURVEYOR MANAGER URINALYSIS, MICROSCOPIC ONLY STAT 08/13/2024 3:59 PM LAND SURVEYOR MANAGER URINALYSIS AND REFLEX TO MICROSCOPIC AND CULTURE STAT 08/13/2024 3:59 PM LAND SURVEYOR MANAGER N. GONORRHOEAE/C. TRACHOMATIS AMPLIFICATION STAT 08/13/2024 3:59 PM LAND SURVEYOR MANAGER from Last 3 Months Results * CT Chest WO Contrast (08/17/2024 1:55 PM LAND SURVEYOR MANAGER) Anatomical Region Laterality Modality Body N/A Computed Tomogra phy 08/17/2024 3:11 PM LAND SURVEYOR MANAGER Narrative 08/17/2024 3:21 PM LAND SURVEYOR MANAGER EXAM DESCRIPTION: CT CHEST WO CONTRAST REASON [...] PM - Electronically signed by Daryl Betancourt M.D. MM T: Report ID: [id number] Reading Location: [place] [address] Procedure Note Daryl Betancourt MD - 08/17/2024 [...] Daryl Betancourt M.D., MM T: Report ID: [id number] Reading Location: [id number] Jono Goel MD IMG CT PROCEDURES Candy l Result * XR Chest 1 View (08/17/2024 9:55 AM LAND SURVEYOR MANAGER) Anatomical Region Laterality Modality Body, Chest N/A Computed Radiogr aphy 08/17/2024 12:2 1 PM LAND SURVEYOR MANAGER Narrative 08/17/2024 12:22 PM LAND SURVEYOR MANAGER EXAM DESCRIPTION: XR CHEST 1 VIEW REASON [...] signed by Smita CLANCY T: Report ID: [id number] Reading Location: [id number] Procedure Note Smita Barrera MD - 08/17/2024 [...] - Electronically signed by Smita Barrera M.D. T: Report ID: [id number] Reading Location: [place] [address] Jono Goel MD IMG XR PROCEDURES Candy l Result * Differential, auto (08/17/2024 8:32 AM LAND SURVEYOR MANAGER) Neutrophil abs 6.3 1.5 - 6.5 K/cumm Imm gran abs 0.1 0.0 - 0.1 K/cumm [facility] Lymphocyte abs 1.6 0.8 - 3.3 K/cumm [facility] Monocyte abs 0.7 0.2 - 0.8 K/cumm [facility] Eosinophil abs 0.3 0.0 - 0.5 K/cumm [facility] Basophil abs 0.0 0.0 - 0.1 K/cumm [facility] Neutrophil pct 69.8 % [facility] Comment: Interpretive Data Percent cell count reference ranges are not reported, since discordance with absolute values may lead to misinterpretation of CBC data. Current Interpretive Data was last revised on 2017. Imm gran pct 0.7 % [facility] Comment: Interpretive Data Percent cell count reference ranges are not reported, since discordance with absolute values may lead to misinterpretation of CBC data. Current Interpretive Data was last revised on 2017. Lymphocyte pct 18.2 % [facility] Comment: Interpretive Data Percent cell count reference ranges are not reported, since discordance with absolute values may lead to misinterpretation of CBC data. Current Interpretive Data was last revised on 2017. Monocyte pct 7.8 % [facility] Comment: Interpretive Data Percent cell count reference ranges are not reported, since discordance with absolute values may lead to misinterpretation of CBC data. Current Interpretive Data was last revised on 2017. Eosinophil pct 3.2 % [facility] Comment: Interpretive Data Percent cell count reference ranges are not reported, since discordance with absolute values may lead to misinterpretation of CBC data. Current Interpretive Data was last revised on 2017. Basophil pct 0.3 % [facility] Comment: Interpretive Data Percent cell count reference ranges are not reported, since discordance with absolute values may lead to misinterpretation of CBC data. Current Interpretive Data was last revised on 2017. Blood 08/17/2024 8:32 AM LAND SURVEYOR MANAGER 08/17/2024 8:38 AM LAND SURVEYOR MANAGER Jono Goel MD LAB BLOOD ORDERABLES F inal Result [facility] [address] [facility] [place] [address] * (ABNORMAL) CBC with auto differential (08/17/2024 8:32 AM LAND SURVEYOR MANAGER) [facility] WBC 9.0 3.8 - 9.9 K/cumm Hgb 13.9 13.0 - 17.5 g/dL [facility] Hct 43.7 38.9 - 50.3 % [facility] Plt 320 150 - 400 K/cumm [facility] MPV 9.5 9.1 - 12.3 fL [facility] RBC 4.77 4.30 - 5.80 M/cumm [facility] MCV 91.6 81.3 - 96.4 fL [facility] MCH 29.1 27.1 - 33.3 pg [facility] MCHC 31.8(L) 32.3 - 35.7 g/dL [facility] RDW CV 13.5 11.1 - 14.9 % [facility] RDW SD 46.2 35.7 - 48.1 fL [facility] NRBC abs 0.00 0.00 - 0.01 K/cumm [facility] Blood 08/17/2024 8:32 AM LAND SURVEYOR MANAGER 08/17/2024 8:38 AM LAND SURVEYOR MANAGER Jono Goel MD LAB BLOOD ORDERABLES F inal Result Performing Organization Address [facility] Co de Phone Number [facility] [address] [address] * eGFR (08/15/2024 9:24 AM LAND SURVEYOR MANAGER) [facility] eGFR >90 >=60 mL/min/1. 73 m2 Comment: [...] last reviewed 2021. Blood 08/15/2024 9:24 AM LAND SURVEYOR MANAGER 08/15/2024 9:45 AM LAND SURVEYOR MANAGER Jono Goel MD LAB BLOOD ORDERABLES F inal Result Performing Organization Address [facility] Co de Phone Number [facility] [address] [place] [address] * Basic metabolic panel (08/15/2024 9:24 AM LAND SURVEYOR MANAGER) [facility] Sodium 139 135 - 145 mmol/L Potassium, pl 4.2 3.3 - 4.9 mmol/L [facility] Comment:Delta - Results Revi ewed Chloride 107 97 - 110 mmol/L [facility] CO2 24 22 - 32 mmol/L [facility] Anion gap 8 2 - 15 mmol/L [facility] BUN 9 6 - 25 mg/dL [facility] Creatinine 0.80 0.80 - 1.30 mg/dL [facility] Glucose 159 70 - 199 mg/dL [facility] Comment: Interpretive Data Fasting glucose >/= [...] classification and Diagnosis of Diabetes Diabetes Care 2021; 46: S19-S40. Current interpretive data was last revised 2022. Calcium 8.6 8.5 - 10.3 mg/dL [facility] Blood 08/15/2024 9:24 AM LAND SURVEYOR MANAGER 08/15/2024 9:45 AM LAND SURVEYOR MANAGER Jono Goel MD LAB BLOOD ORDERABLES F inal Result Performing Organization Address [facility] Co de Phone Number [address] [place] [address] * HIV 1/2 Antibody plus p24 Antigen Blood (08/14/2024 10:37 AM LAND SURVEYOR MANAGER) HIV 1/2 ab + p24 ag Nonreactive Nonreactive Comment:Nonreactive for HIV- 1 antigen and HIV-1/HIV-2 antibodies. No laboratory evidence of HIV infection. If acute HIV infection is suspected, consider testing for HIV-1 RNA. Current interpretive data was last revised on 22. Blood 08/14/2024 10:3 7 AM LAND SURVEYOR MANAGER 08/14/2024 10:58 AM LAND SURVEYOR MANAGER Jono Goel MD LAB MICROBIOLOGY - GEN ERAL ORDERABLES Final Result Performing Organization Address City/[facility] Co de Phone Number [facility] [address] [facility] [place] [place] [address] * Hepatitis panel, acute Blood (08/14/2024 10:37 AM LAND SURVEYOR MANAGER) [facility] Hep A IgM Nonreactive Nonreactive Comment: Interpretive Data: If Hep A IgM Ab is reported as Equivocal, a new sample should be drawn in two weeks for testing. Current interpretive data was last revised on 19. Hep B core IgM Nonreactive Nonreactive [facility] Comment: Interpretive Data If HepB Core IgM Ab is reported as Equivocal, a new sample should be drawn in two weeks for testing. Current interpretive data was last revised on 19. Hep C Ab Nonreactive Nonreactive [facility] Comment: Antibodies to HCV not detected. Does [...] last revised on 2019. HepBsAg Nonreactive Nonreactive [facility] Blood 08/14/2024 10:3 7 AM LAND SURVEYOR MANAGER 08/14/2024 10:58 AM LAND SURVEYOR MANAGER Jono Goel MD LAB MICROBIOLOGY - GEN ERAL ORDERABLES Final Result [facility] [address] [facility] [place] [address] * CBC without differential (08/14/2024 5:34 AM LAND SURVEYOR MANAGER) [facility] WBC 4.9 3.8 - 9.9 K/cumm Hgb 14.2 13.0 - 17.5 g/dL [facility] Hct 43.0 38.9 - 50.3 % [facility] Plt 268 150 - 400 K/cumm [facility] MPV 9.4 9.1 - 12.3 fL [facility] RBC 4.81 4.30 - 5.80 M/cumm [facility] MCV 89.4 81.3 - 96.4 fL [facility] MCH 29.5 27.1 - 33.3 pg [facility] MCHC 33.0 32.3 - 35.7 g/dL [facility] RDW CV 13.6 11.1 - 14.9 % [facility] RDW SD 44.7 35.7 - 48.1 fL [facility] NRBC abs 0.00 0.00 - 0.01 K/cumm [facility] Blood 08/14/2024 5:34 AM LAND SURVEYOR MANAGER 08/14/2024 5:44 AM LAND SURVEYOR MANAGER us Wilton Eng MD LAB BLOOD ORDER QUINCY Final Result Performing Organization Address City/[facility] Co de Phone Number [facility] [address] [facility] Department [place] [address] * eGFR (08/14/2024 4:37 AM LAND SURVEYOR MANAGER) eGFR >90 >=60 mL/min/1. 73 m2 Comment: [...] last reviewed 2021. Blood 08/14/2024 4:37 AM LAND SURVEYOR MANAGER 08/14/2024 4:52 AM LAND SURVEYOR MANAGER us Wilton Eng MD LAB BLOOD ORDER QUINCY Final Result [facility] [address] [place] [address] [place] [address] * (ABNORMAL) Comprehensive metabolic panel (08/14/2024 4:37 AM LAND SURVEYOR MANAGER) Sodium 140 135 - 145 mmol/L Potassium, pl 3.1(L) 3.3 - 4.9 mmol/L [facility] Chloride 105 97 - 110 mmol/L [facility] CO2 25 22 - 32 mmol/L [facility] Anion gap 10 2 - 15 mmol/L [facility] BUN 11 6 - 25 mg/dL [facility] Creatinine 0.96 0.80 - 1.30 mg/dL [facility] Glucose 127 70 - 199 mg/dL [facility] Comment: Interpretive Data Fasting glucose >/= [...] classification and Diagnosis of Diabetes Diabetes Care 2021; 46: S19-S40. Current interpretive data was last revised 2022. Calcium 8.9 8.5 - 10.3 mg/dL [facility] Bilirubin, total 0.2 0.1 - 1.2 mg/dL [facility] Protein, pl 5.9(L) 6.5 - 8.5 g/dL [facility] Albumin 3.2(L) 3.5 - 5.0 g/dL [facility] Alk phos 79 40 - 130 Units/L [facility] ALT 25 7 - 55 Units/L [facility] AST 18 10 - 50 Units/L [facility] Blood 08/14/2024 4:37 AM LAND SURVEYOR MANAGER 08/14/2024 4:52 AM LAND SURVEYOR MANAGER Wilton Eng MD LAB BLOOD ORDER QUINCY Final Result [facility] [address] [place] [address] * HIV 1/2 Antibody plus p24 Antigen Blood (08/13/2024 9:09 PM LAND SURVEYOR MANAGER) Pathologist [facility] HIV 1/2 ab + p24 ag Nonreactive Nonreactive Comment:Nonreactive for HIV- 1 antigen and HIV-1/HIV-2 antibodies. No laboratory evidence of HIV infection. If acute HIV infection is suspected, consider testing for HIV-1 RNA. Current interpretive data was last revised on 22. Blood 08/13/2024 9:09 PM LAND SURVEYOR MANAGER 08/13/2024 9:14 PM LAND SURVEYOR MANAGER us David MAYO LAB MICROBIOLOGY - GENERAL O RDERABLES Final Result Performing Organization Address City/[facility]/ZIP Co de Phone Number DIANA[address] [address] * RPR Blood (08/13/2024 9:09 PM LAND SURVEYOR MANAGER) Pathologist [facility] RPR Nonreactive Nonreactive Comment:Testing performed by : [facility], [address] [place] [address] Blood 08/13/2024 9:09 PM LAND SURVEYOR MANAGER 08/14/2024 1:00 AM LAND SURVEYOR MANAGER us David MAYO LAB MICROBIOLOGY - GENERAL O RDERABLES Final Result [facility] [place] [address] * ECG 12 lead (08/13/2024 9:00 PM LAND SURVEYOR MANAGER) Pathologist [facility] Ventricular Rate EKG/Min 105 BPM [facility] Atrial Rate 105 BPM [facility] ND-Interval (MSEC) 130 ms [facility] QRS-Interval (MSEC) 78 ms [facility] QT-Interval (MSEC) 308 ms [facility] QTc 407 ms [facility] P [place] 69 degrees [facility] R [place] 44 degrees [facility] T [place] 68 degrees [facility] Diagnosis Sinus tachycardia Otherwise normal ECG No previous ECGs available Confirmed by MISAEL GARCIA M.D. ([id number]) on 08/15/2024 9:30:30 PM [facility] 08/13/2024 9:00 PM LAND SURVEYOR MANAGER 08/15/2024 9:30 PM LAND SURVEYOR MANAGER David Ferrell PA ECG ORDERABLES Final Result [facility] * Troponin T high-sensitivity (08/13/2024 4:48 PM LAND SURVEYOR MANAGER) Trop T hs 6 <=22 ng/L Comment: Interpretive Data For further hscTnT resources including the diagnostic algorithm and an aid in interpretation, copy and paste this link: https://nrl.testcatalog.org/show/hsTrop Current Interpretive Data last revised 2020. Blood 08/13/2024 4:48 PM LAND SURVEYOR MANAGER 08/13/2024 4:52 PM LAND SURVEYOR MANAGER us Wilton Eng MD LAB BLOOD ORDER QUINCY Final Result Performing Organization Address City/[facility]/ZIP Co de Phone Number [place] [address] [facility] [place] [address] * eGFR (08/13/2024 4:48 PM LAND SURVEYOR MANAGER) eGFR >90 >=60 mL/min/1. 73 m2 Comment: [...] last reviewed 2021. Blood 08/13/2024 4:48 PM LAND SURVEYOR MANAGER 08/13/2024 4:52 PM LAND SURVEYOR MANAGER Wilton Eng MD LAB BLOOD ORDER QUINCY Final Result [facility] [address] [facility] [place] [address] * (ABNORMAL) Differential, auto (08/13/2024 4:48 PM LAND SURVEYOR MANAGER) Pathologist [facility] Neutrophil abs 4.9 1.5 - 6.5 K/cumm Imm gran abs 0.0 0.0 - 0.1 K/cumm [facility] Lymphocyte abs 1.1 0.8 - 3.3 K/cumm [facility] Monocyte abs 1.0(H) 0.2 - 0.8 K/cumm [facility] Eosinophil abs 0.1 0.0 - 0.5 K/cumm [facility] Basophil abs 0.0 0.0 - 0.1 K/cumm [facility] Neutrophil pct 68.8 % [facility] Comment: Interpretive Data Percent cell count reference ranges are not reported, since discordance with absolute values may lead to misinterpretation of CBC data. Current Interpretive Data was last revised on 2017. Imm gran pct 0.6 % [facility] Comment: Interpretive Data Percent cell count reference ranges are not reported, since discordance with absolute values may lead to misinterpretation of CBC data. Current Interpretive Data was last revised on 2017. Lymphocyte pct 15.6 % [facility] Comment: Interpretive Data Percent cell count reference ranges are not reported, since discordance with absolute values may lead to misinterpretation of CBC data. Current Interpretive Data was last revised on 2017. Monocyte pct 13.5 % [facility] Comment: Interpretive Data Percent cell count reference ranges are not reported, since discordance with absolute values may lead to misinterpretation of CBC data. Current Interpretive Data was last revised on 2017. Eosinophil pct 1.1 % [facility] Comment: Interpretive Data Percent cell count reference ranges are not reported, since discordance with absolute values may lead to misinterpretation of CBC data. Current Interpretive Data was last revised on 2017. Basophil pct 0.4 % [facility] Comment: Interpretive Data Percent cell count reference ranges are not reported, since discordance with absolute values may lead to misinterpretation of CBC data. Current Interpretive Data was last revised on 2017. Blood 08/13/2024 4:48 PM LAND SURVEYOR MANAGER 08/13/2024 4:52 PM LAND SURVEYOR MANAGER Wilton Eng MD LAB BLOOD ORDER QUINCY Final Result Performing Organization Address City/[facility] Co de Phone Number [facility] [address] [facility] [place] [address] * CBC with auto differential (08/13/2024 4:48 PM LAND SURVEYOR MANAGER) Pathologist [facility] WBC 7.1 3.8 - 9.9 K/cumm Hgb 16.1 13.0 - 17.5 g/dL [facility] Hct 49.4 38.9 - 50.3 % [facility] Plt 298 150 - 400 K/cumm [facility] MPV 9.6 9.1 - 12.3 fL [facility] RBC 5.41 4.30 - 5.80 M/cumm [facility] MCV 91.3 81.3 - 96.4 fL [facility] MCH 29.8 27.1 - 33.3 pg [facility] MCHC 32.6 32.3 - 35.7 g/dL [facility] RDW CV 13.7 11.1 - 14.9 % [facility] RDW SD 46.2 35.7 - 48.1 fL [facility] NRBC abs 0.00 0.00 - 0.01 K/cumm [facility] Blood 08/13/2024 4:48 PM LAND SURVEYOR MANAGER 08/13/2024 4:52 PM LAND SURVEYOR MANAGER Wilton Eng MD LAB BLOOD ORDER QUINCY Final Result Performing Organization Address City/[facility] de Phone Number [facility] [address] [facility] [place] [address] * Ethanol (08/13/2024 4:48 PM LAND SURVEYOR MANAGER) [facility] Ethanol <10 <=10 mg/dL Comment: Interpretive Data Legal limit of intoxication > or = 80 mg/dL Levels > or = 400 mg/dL are potentially TOXIC. Current interpretive data was last revised on 2018. Blood 08/13/2024 4:48 PM LAND SURVEYOR MANAGER 08/13/2024 4:52 PM LAND SURVEYOR MANAGER Wilton Eng MD LAB BLOOD ORDER QUINCY Final Result Performing Organization Address [facility] de Phone Number [facility] [address] [place] [address] * Comprehensive metabolic panel (08/13/2024 4:48 PM LAND SURVEYOR MANAGER) [facility] Sodium 140 135 - 145 mmol/L Potassium, pl 4.4 3.3 - 4.9 mmol/L [facility] Chloride 102 97 - 110 mmol/L [facility] CO2 28 22 - 32 mmol/L [facility] Anion gap 10 2 - 15 mmol/L [facility] BUN 8 6 - 25 mg/dL [facility] Creatinine 0.92 0.80 - 1.30 mg/dL [facility] Glucose 111 70 - 199 mg/dL [facility] Comment: Interpretive Data Fasting glucose >/= [...] 2022. Calcium 9.5 8.5 - 10.3 mg/dL [facility] Bilirubin, total 0.3 0.1 - 1.2 mg/dL [facility] Protein, pl 7.2 6.5 - 8.5 g/dL [facility] Albumin 3.9 3.5 - 5.0 g/dL [facility] [facility] Alk phos 90 40 - 130 Units/L [facility] ALT 32 7 - 55 Units/L [facility] AST 22 10 - 50 Units/L [facility] Blood 08/13/2024 4:48 PM LAND SURVEYOR MANAGER 08/13/2024 4:52 PM LAND SURVEYOR MANAGER Wilton Eng MD LAB BLOOD ORDER QUINCY Final Result [facility] [address] [facility] [place] [address] * (ABNORMAL) Fentanyl Confirmation, Urine (08/13/2024 4:40 PM LAND SURVEYOR MANAGER) Fentanyl Conf, Ur Does Not Confirm Cutoff 0.3ng/mL Comment:Testing performed by : [facility], [address] [place] [address]., [address] Acetylfentanyl Conf, Ur Does Not Confirm Cutoff 1 ng/mL [facility] Comment:Testing performed by : [facility], [address] [place] [address] Acrylfentanyl Conf, Ur Does Not Confirm Cutoff 1 ng/mL [facility]BY Comment:Testing performed by : [facility], [address] [place] [address]., [address] Furanylfentanyl Conf, Ur Does Not Confirm Cutoff 1 ng/mL [facility] Comment:Testing performed by : [facility], [address] [place]., [address] Fentanyl Metabolite (Norfentanyl) Conf, Ur Confirmed Positive(A) CutOff 5 ng/mL [facility]BY Comment:Testing performed by : [facility], [address] [place]., [address] Xylazine MS Does Not Confirm Cutoff 1 [...] needed. Performance characteristics were determined by the [facility] in a manner consistent with CLIA requirement and has not been cleared or approved by the U.S. Food and Drug Administration. Current interpretive data was last revised 2020. Testing performed by: [facility], [address] [place] [address] Urine 08/13/2024 4:40 PM LAND SURVEYOR MANAGER 08/13/2024 7:29 PM LAND SURVEYOR MANAGER us Kassandra Kearney MD LAB URINE ORDERABLES F inal Result COLBY [address] [facility] [place] [address] * (ABNORMAL) Drugs of Abuse Screen, Urine with Reflex Confirmation (08/13/2024 4:40 PM LAND SURVEYOR MANAGER) Amphetamine, ur Screen Positive, presumptive (A) CutOff [...] Cannabinoids, ur Not Detected CutOff 50 ng/mL [facility] Comment: Interpretive Data - Cannabinoids: Samples containing greater than 50 ng/mL delta-9 THC -COOH or other cross- reacting compounds are reported as positive. False positive and false negative results are possible. Confirmatory testing required for definitive results. Current Interpretive Data was last reviewed 2023. Cocaine, ur Not Detected CutOff 150ng/mL [facility] Comment: Interpretive Data - Cocaine: Samples containing greater than 150 ng/mL benzoylecgonine or other cross- reacting compounds are reported as positive. False positive and false negative results are possible. Confirmatory testing required for definitive results. Current Interpretive Data was last reviewed 2023. Fentanyl, Ur Screen Positive, presumptive (A) CutOff 5 ng/mL [facility] Comment: Interpretive Data - Fentanyl: Samples containing greater than 5 ng/mL norfentanyl, fentanyl, or other cross-reacting fentanyl compounds are reported as positive. False positive and false negative results are possible. Confirmatory testing required for definitive results. Current Interpretive Data was last reviewed 2023. Methadone, ur Not Detected CutOff 300ng/mL [facility] Comment: Interpretive Data - Methadone: Samples containing greater than 300 ng/mL d,l-methadone or other cross-reacting compounds are reported as positive. False positive and false negative results are possible. Confirmatory testing required for definitive results. Current Interpretive Data was last reviewed 2023. Opiates, ur Not Detected CutOff 300ng/mL [facility] Comment: Interpretive Data - Opiates: Samples containing greater than 300 ng/mL morphine or other cross-reacting compounds are reported as positive. False positive and false negative results are possible. Confirmatory testing required for definitive results. Current Interpretive Data was last reviewed 2023. Oxycodone, ur Not Detected CutOff 100ng/mL [facility] Comment: Interpretive Data - Oxycodone: Samples containing greater than 100 ng/mL oxycodone or other cross-reacting compounds are reported as positive. False positive and false negative results are possible. Confirmatory testing required for definitive results. Current Interpretive Data was last reviewed 2023. Phencyclidine, ur Not Detected CutOff 25 ng/mL [facility] Comment: Interpretive Data - Phencyclidine: Samples containing greater than 25 ng/mL phencyclidine or other cross-reacting compounds are reported as positive. False positive and false negative results are possible. Confirmatory testing required for definitive results. Current Interpretive Data was last reviewed 2023. Urine Creatinine 158 mg/dL [facility] Comment: Interpretive Data Urine Creatinine: < 10 mg/dL is extremely dilute = or > 10 but < 20 mg/dL is dilute = or > 20 mg/dL is normal Current Interpretive Data was last revised on 2017. Urine 08/13/2024 4:40 PM LAND SURVEYOR MANAGER 08/13/2024 4:42 PM LAND SURVEYOR MANAGER Narrative [facility] 08/13/[facility]24 5:13 PM LAND SURVEYOR MANAGER Drug of Abuse screening is performed by immunoassay for medical purposes only. This is not to be used for Pain Management purposes. If Detected, confirmation testing will be performed for Amphetamines, Cocaine, Fentanyl, Methadone, Opiates, Oxycodone or Phencyclidine. Wilton Eng MD LAB URINE ORDER QUINCY Final Result [facility] [address] [facility] [place] [address] * (ABNORMAL) Amphetamine Confirmation, Urine (08/13/2024 4:40 PM LAND SURVEYOR MANAGER) Amphetamine Conf, Ur Confirmed Positive(A) CutOff 150ng/mL Comment:Testing performed by : [facility], [address] [place]., [address] Methamphetamine Conf, Ur Confirmed Positive(A) CutOff 150ng/mL [facility] BE Comment:Testing performed by : [facility], [address] [place]., [address] MDA Conf, Ur Does Not Confirm CutOff 150ng/mL [facility] BE Comment:Testing performed by : [facility], [address] [place]., [address] MDMA Conf, Ur Does Not Confirm CutOff 50 ng/mL [facility] Comment:Testing performed by : [facility], [address] [place]., [address] MDEA Conf, Ur Does Not Confirm CutOff 150ng/mL [facility] Comment:Testing performed by : [facility], [address] [place]., [address] MBDB Conf, Ur Does Not Confirm CutOff 150ng/mL [facility] Comment: Interpretive Data This test detects the presence or absence of drug compounds using LC Tandem mass spectrometry. While this test is highly specific, false positive and false negative results may occur in very rare circumstances. Contact the laboratory for consultation, if needed. Performance characteristics were determined by the [facility] in a manner consistent with CLIA requirement and has not been cleared or approved by the U.S. Food and Drug Administration. Current interpretive data was last revised on 2020. Testing performed by: [facility], [address] [place]., [address] Urine 08/13/2024 4:40 PM LAND SURVEYOR MANAGER 08/13/2024 7:29 PM LAND SURVEYOR MANAGER Kassandra Kearney MD LAB URINE ORDERABLES F inal Result [facility] [address] [facility] [place] [address] * XR Chest Pa Lateral 2 Views (08/13/2024 4:09 PM LAND SURVEYOR MANAGER) Anatomical Region Laterality Modality Body, Chest N/A Computed Radiogr aphy 08/13/2024 4:19 PM LAND SURVEYOR MANAGER Narrative 08/13/2024 4:20 PM LAND SURVEYOR MANAGER EXAM DESCRIPTION: XR CHEST PA LATERAL 2 [...] Janiya Anne D.O. PS T: Report ID: [id number] Reading Location: [id number] Procedure Note Janiya Anne, DO - 08/13/2024 EXAM DESCRIPTION: XR CHEST PA [...] Janiya Anne D.O. PS T: Report ID: [id number] Reading Location: [id number] Wilton Eng MD IMG XR PROCEDUR ES Final Result * N. gonorrhoeae/C. trachomatis Amplification Urine (08/13/2024 3:59 PM LAND SURVEYOR MANAGER) C. trachomatis Not Detected Not Detected N. gonorrhoeae Not Detected Not Detected [facility] Comment: Interpretive Data This assay detects Chlamydia trachomatis and Neisseria gonorrhoeae by nucleic acid amplification testing (NAAT). This assay has been cleared by the [place] Food and Drug administration. The performance characteristics of this test have been verified by the [facility]. The performance characteristics of this test have not been evaluated in individuals less than 14 years of age. Current Interpretive Data last revised 2023. Urine (None) 08/13/2024 3:59 PM LAND SURVEYOR MANAGER 08/13/2024 4:09 PM LAND SURVEYOR MANAGER Wilton Eng MD LAB MICROBIOLOG Y - GENERAL ORDERABLES Final Result Performing Organization Address [facility] de Phone Number COLBY [address] [address] * (ABNORMAL) Urinalysis reflex to microscopic and culture Urine (08/13/2024 3:59 PM LAND SURVEYOR MANAGER) Color, ur Yellow Yellow Clarity, ur Clear Clear [facility] Specific gravity, ur 1.019 1.003 - 1.030 [facility] pH, urine 6.5 [facility] Comment: Interpretive Data U rine pH is affected by diet, medications, systemic acid-base disturbances, and renal tubular function. pH may affect urinary stone formation. For example, urine pH below 6.0 may help reduce the tendency for calcium phosphate stones and pH greater than 6.0 may reduce the tendency for uric acid stone formation. Source: [facility] Current Interpretive Data was last revised on 2017 Protein, ur ql Negative Negative [facility] Glucose, ur ql Negative Negative [facility] Ketones, ur Negative Negative [facility] Bilirubin, ur Negative Negative [facility] Blood, ur 1+(A) Negative [facility] Urobilinogen, ur <2.0 <2.0 mg/dL [facility] Nitrite, ur Negative Negative [facility] Leukocyte esterase, ur Negative Negative [facility] UA reflex comment Reflex to microscopic UA will be performed. [facility] Urine 08/13/2024 3:59 PM LAND SURVEYOR MANAGER 08/13/2024 4:09 PM LAND SURVEYOR MANAGER Wilton Eng MD LAB MICROBIOLOG Y - GENERAL ORDERABLES Final Result Performing Organization Address [facility] Co de Phone Number [facility] [address] [address] * (ABNORMAL) Urinalysis, microscopic only (08/13/2024 3:59 PM LAND SURVEYOR MANAGER) WBC, ur 0-5 0 - 5 /HPF RBC, ur 11-20(A) 0 - 2 /HPF [facility] Epithelial cells, squamous, ur 1-5 0 - 5 /HPF [facility] Mucous, ur Present(A) [facility] Culture Reflex Comment Reflex conditions for urine culture (WBC >10) not met. [facility] Urine 08/13/2024 3:59 PM LAND SURVEYOR MANAGER 08/13/2024 4:09 PM LAND SURVEYOR MANAGER Wilton Eng MD LAB URINE ORDER QUINCY Final Result [facility] [address] [facility] [place] [address] from Last 3 Months Insurance [facility] MEDICAID [facility] [place] Advance Directives For more information, please contact: [phone] * Full Code (Latest Code Status on File) Date Activated Date Inactivated Comments 08/13/2024 10:32 PM 08/21/2024 4:40 PM Care Teams Ferryboat Deckhand Relationship Specialty Start Date End Date No, Provider PCP - General 03/09/22 Miscellaneous, Not In File 08/21/24
--- OUTSIDE RECORDS SUMMARY | 2024-09-11 18:19 | XMS_ITS | Patient Health Summary ---
Author Organization [facility] Address [address] [facility] [place] [address] Care Team Providers Care Alligator Trapper Name Role Phone Darlene Birch GUMMED TAPE PRESS OPERATOR-VEGETABLE PACKER Primary Care Provi edgar Note from [facility],non-owned Affiliates and Associated Physician Practices is amultiple site organization consisting of ambulatory clinics and hospital sitesin [place], [place], [place] and [place]. This disclosure is being madepursuant to the Care Everywhere program and may not contain all information available regarding this patient. Last updated 18.[facility] Allergies * Hydrocodone(Itching,Rash) -Medium Criticality Medications * Be aware that medications may not be up to date on this document. Alwaysverify current medications with the patient. * raNITIdine (ZANTAC) 150 MG tablet(Started 06/15/2017) * QUEtiapine (SEROQUEL) 200 MG tablet(Started 02/23/2017) * omeprazole (PRILOSEC) 40 MG capsule(Started 06/15/2017) * traZODone (DESYREL) 50 MG tablet(Started 06/22/2017) * citalopram (CELEXA) 20 MG tablet(Started 11/24/2016) * busPIRone (BUSPAR) 15 MG tablet(Started 02/23/2017) * citalopram (CELEXA) 40 MG tablet(Started 06/22/2017) * atorvastatin (LIPITOR) 20 MG tablet(Started 06/15/2017) * raNITIdine (ZANTAC) 150 MG tablet(Started 02/03/2017) * naloxone HCl (Narcan) 4 MG/0.1ML nasal spray(Started 08/10/2024) [place] 1 (one) spray into the nose as needed (May repeat every 2 min in alternating nostrils until emergency medical help arrives for overdose) Social History Tobacco Use Types Packs/Day Years Used Date Smoking Tobacco: Every Day Cigarettes Smokeless Tobacco: Never Tobacco Cessation:Ready to Q uit: Not Asked; Counseling Given: Not Answered Alcohol Use Standard Drinks/Week Comments Yes 0 (1 standard drink = 0.6 oz pur e alcohol) Sex and Gender Information Value Date Recorded Sex Assigned at Not on file Gender Identity Not on file Sexual Orientation Not on file Last Filed Vital Signs Vital Sign Reading Time Taken Comments Blood Pressure 130/85 08/10/2024 2:15 AM HEAD SHIPPER Pulse 91 08/10/2024 2:15 AM HEAD SHIPPER Temperature 36.7 C (98 F) 08/09/2024 11:21 PM HEAD SHIPPER Respiratory Rate 14 08/10/2024 2:15 AM HEAD SHIPPER Oxygen Saturation 94% 08/10/2024 2:15 AM HEAD SHIPPER Inhaled Oxygen Concentration - - Weight 79.8 kg (176 lb) 06/28/2017 10:11 AM HEAD SHIPPER Height 182.9 cm (6') 06/28/2017 10:11 AM HEAD SHIPPER Body Mass Index 23.87 06/28/2017 10:11 AM HEAD SHIPPER Procedures * XR CHEST 1VW PORTABLE(Performed 08/09/2024) Performed for Accidental overdose, initial encounter * BASIC METABOLIC PANEL (CALCIUM TOTAL)(Performed 08/09/2024) * CBC W AUTO DIFFERENTIAL(Performed 08/09/2024) * EKG 12-LEAD(Performed 08/09/2024) Performed for Accidental overdose, initial encounter * URINALYSIS W/MICROSCOPIC NO CULTURE(Performed 06/29/2017) * CULTURE URINE(Performed 06/29/2017) * URINALYSIS AUTO - POINT OF CARE (AMB) [facility](Performed 06/28/2017) Results * XR CHEST 1VW PORTABLE (08/09/2024 11:47 PM HEAD SHIPPER) Anatomical Region Laterality Modality Chest Computed Radiogr aphy 08/10/2024 8:19 AM HEAD SHIPPER Impressions 08/10/2024 8:20 AM HEAD SHIPPER IMPRESSION: No acute disease. > Interpreting Provider: Lenin Bullard MD on 08/10/2024 8:20 AM Narrative 08/10/2024 8:20 AM HEAD SHIPPER Portable Chest AP History: Poisoning. Overdose. Left chest pain.. FINDINGS: Lungs are clear. No pleural effusion or pneumothorax seen. Cardiac silhouette within normal limits. Procedure Note Lenin Bullard MD - 08/10/2024 Portable Chest AP History: Poisoning. Overdose. Left chest pain.. FINDINGS: Lungs are clear. No pleural effusion or pneumothorax seen. Cardiac silhouette within normal limits. IMPRESSION: No acute disease. > Interpreting Provider: Lenin Bullard MD on 08/10/2024 8:20 AM [facility] DO DIAGNOSTIC IMAGING O RDERABLES * CBC W AUTO DIFFERENTIAL (08/09/2024 11:39 PM HEAD SHIPPER) WBC 8.4 4.0 - 10.7 x10E9/L 08/09/2024 11:59 PM HEAD SHIPPER [facility] RBC Count 4.86 4.30 - 5.80 x10E12/L 08/09/2024 11:59 PM HEAD SHIPPER [facility] Hemoglobin 14.7 13.3 - 17.5 g/dL 08/09/2024 11:59 PM HEAD SHIPPER [facility] Hematocrit 44.2 38.7 - 51.1 % 08/09/2024 11:59 PM HEAD SHIPPER [facility] MCV 90.9 80.0 - 98.0 fL 08/09/2024 11:59 PM HEAD SHIPPER [facility] MCH 30.2 26.7 - 33.6 pg 08/09/2024 11:59 PM HEAD SHIPPER [facility] MCHC 33.3 31.7 - 36.3 g/dL 08/09/2024 11:59 PM HEAD SHIPPER [facility] RDW-CV 13.5 11.3 - 14.8 % 08/09/2024 11:59 PM HEAD SHIPPER [facility] Platelet Count 304 150 - 420 x10E9/L 08/09/2024 11:59 PM HEAD SHIPPER [facility] MPV 9.9 7.8 - 11.4 fL 08/09/2024 11:59 PM HEAD SHIPPER [facility] Neutrophil % 60.3 41.0 - 74.0 % 08/09/2024 11:59 PM HEAD SHIPPER [facility] Lymphocyte % 29.8 17.0 - 47.0 % 08/09/2024 11:59 PM HEAD SHIPPER [facility] Monocyte % 5.4 3.0 - 11.0 % 08/09/2024 11:59 PM [facility] Eosinophil % 3.0 0.0 - 7.0 % 08/09/2024 11:59 PM [facility] Basophil % 0.5 0.0 - 1.6 % 08/09/2024 11:59 PM [facility] Immature Granulocytes % 1.0 0.0 - 1.0 % 08/09/2024 11:59 PM [facility] Neutrophil Absolute 5.08 1.60 - 7.50 x10E9/L 08/09/2024 11:59 PM [facility] Lymphocyte Absolute 2.51 1.00 - 4.40 x10E9/L 08/09/2024 11:59 PM [facility] Monocyte Absolute 0.45 0.15 - 1.00 x10E9/L 08/09/2024 11:59 PM [facility] Eosinophil Absolute 0.25 0.00 - 0.60 x10E9/L 08/09/2024 11:59 PM [facility] Basophil Absolute 0.04 0.00 - 0.13 x10E9/L 08/09/2024 11:59 PM [facility] Blood BLOOD SPECIMEN / Unknown Venipuncture / Unknown 08/09/2024 11:39 PM HEAD SHIPPER 08/09/2024 11:48 PM [facility] Zeb Landers DO LAB - HEMATOLOGY ORD ERABLES [facility] [address] [place] [address] * (ABNORMAL) BASIC METABOLIC PANEL (CALCIUM TOTAL) (08/09/2024 11:39 PM HEAD SHIPPER) Glucose 252(H) 70 - 99 mg/dL 08/10/2024 12:05 AM [facility] Sodium 138 136 - 145 mmol/L 08/10/2024 12:05 AM [facility] Potassium 4.7 3.5 - 5.1 mmol/L 08/10/2024 12:05 AM [facility] Chloride 105 98 - 107 mmol/L 08/10/2024 12:05 AM [facility] CO2 22 22 - 29 mmol/L 08/10/2024 12:05 AM [facility] Calcium 8.5 8.4 - 10.4 mg/dL 08/10/2024 12:05 AM [facility] Anion Gap 11 6 - 16 mmol/L 08/10/2024 12:05 AM [facility] BUN 11 7 - 26 mg/dL 08/10/2024 12:05 AM [facility] Creatinine 1.21 0.72 - 1.25 mg/dL 08/10/2024 12:05 AM [facility] eGFR by CKD-EPI 72(L) >=90 mL/min/1.7 3 m2 08/10/2024 12:05 AM [facility] Blood BLOOD SPECIMEN / Unknown Venipuncture / Unknown 08/09/2024 11:39 PM HEAD SHIPPER 08/09/2024 11:48 PM HEAD SHIPPER [facility] - CHEMISTRY IQRA MEZA Performing Organization Address [facility] Co de Phone Number [facility] [address] [place] [address] * EKG 12-LEAD (08/09/2024 11:28 PM HEAD SHIPPER) Ventricular Rate 81 BPM [facility] Atrial Rate 81 BPM [facility] P-R Interval 128 ms [facility] QRS Duration ms 90 ms [facility] Q-T Interval ms 380 ms [facility] QTC Calculation (Bezet) 441 ms [facility] Calculated P Sieper 62 degrees [facility] Calculated R Sie[place] 53 degrees [facility] Calculated T Sieper 67 degrees [facility] Interpretation EKG Normal sinus rhythm Normal ECG No previous ECGs available Confirmed by PAL ISLAS MD ([id number]) on 08/10/2024 4:05:41 PM [facility] 08/09/2024 11:2 8 PM HEAD SHIPPER 08/10/2024 4:05 PM HEAD SHIPPER Zeb Sportgenicupdanette DO ECG ORDERABLES Performing Organization Address City/[facility]/ZIP Co de Phone Number [facility] * (ABNORMAL) URINALYSIS W/MICROSCOPIC NO CULTURE (06/29/2017 2:55 PM HEAD SHIPPER) Color UA Yellow Straw, Yellow, Colorless, Light Yellow [facility] Clarity UA Clear Clear [facility] Specific [place] UA 1.015 1.001 - 1.030 [facility] pH UA 5.5 5.0 - 8.0 [facility] Protein UA Negative <=20 mg/dL [facility] Glucose UA Negative Negative mg/dL [facility] Ketone UA Negative Negative mg/dL [facility] Bilirubin UA Negative Negative mg/dL [facility] Blood UA Negative Negative [facility] Nitrite UA Negative Negative [facility] Leukocyte Esterase Negative Negative [facility] Urobilinogen UA <2.0 <2.0 mg/dL [facility] RBC UA 1 0 - 8 /HPF [facility] WBC UA 1 0 - 2 /HPF [facility] Squamous Epithelial Cells UA 1 0 - 1 /HPF [facility] Mucus UA Rare(A) None /LPF [facility] Hyaline Casts UA 1 0 - 2 /LPF [facility] Urine specimen (specimen) URINE SPECIMEN OBTAINED BY CLEAN CATCH PROCEDURE / Unknown 06/29/2017 2:55 PM HEAD SHIPPER 06/29/2017 3:08 PM HEAD SHIPPER Katarina Domingo DO LAB - URINALYSIS O RDERABLES [address] [phone] * CULTURE URINE (06/29/2017 2:55 PM HEAD SHIPPER) Culture Urine No growth (<1,000 CFU/mL) [facility] Urine specimen (specimen) URINE SPECIMEN OBTAINED BY CLEAN CATCH PROCEDURE / Unknown 06/29/2017 2:55 PM HEAD SHIPPER 06/29/2017 3:07 PM HEAD SHIPPER Narrative [facility] - 07/02/2017 2:24 PM HEAD SHIPPER Specimen Type->Urine Resulting Lab: [facility] MICROBIOLOGY [address] [place] [address] PH: [phone] Resulting Lab: [facility] MICROBIOLOGY [address] [place] [address] PH: [phone] Katarina Domingo DO LAB - MICROBIOLOGY ORDERABLES [facility] [address] [place], [place] [address] [phone] * URINALYSIS AUTO - POINT OF CARE (AMB) [facility] (06/28/2017 10:21 AM HEAD SHIPPER) Glucose UA neg [facility] Bilirubin UA POCT neg [facility] Ketones UA POCT neg [facility] Specific [place] UA 1.030 [facility] Blood Urine POCT 10 [facility] pH UA 6.0 [facility] Protein UA neg [facility] Urobilinogen UA 3.5 [facility] Nitrite UA neg [facility] WBC UA neg [facility] Urine specimen (specimen) 06/28/2017 10:21 AM HEAD SHIPPER Katarina Domingo DO LAB - POINT OF CAR E ORDERABLES [facility] Care Teams Alligator Trapper Relationship Specialty Start Date End Date Darlene Birch APRN-VEGETABLE PACKER PCP - General 02/03/17
--- OUTSIDE RECORDS SUMMARY | 2024-09-11 18:19 | XMS_ITS ---
Author Organization Formerly [facility] Address [address] [place] [address] Care Team Providers Care Superintendent [employer] Name Role Phone Jose Gardner Primary Care Provider Brodie Nunez Unavailable [phone] REASON FOR VISIT labs Medications Medication SIG (Take, Route, Frequency, Duration) Notes Start Date End Date Status Promethazine-DM 6.25-15 MG/5ML 5 mL as needed Orally every 6 hrs for 5 days As needed on unit 09/10/2024 Active Amoxicillin-Pot Clavulanate 875-125 MG 1 tablet Orally every 12 hrs for 7 days on unit, please deliver today 09/10/2024 Active Problems Problem Type SNOMED Code ICD Code Onset Dates Problem Status W/U Status Risk Notes Problem Leukocytosis ([id number]) Elevated white blood cell count, unspecified (D72.829) Active confirmed Encounters Encounter Location Date Provider Diagnosis [address] [place] [address] 09/10/2024 Brodie Nunez Elevated white blood cell count, unspecified D72.829 and Cough R05.9 Assessments Encounter Date Diagnosis (ICD Code) Assessment Notes Treatment Notes Treatment Clinical Notes Section Notes 09/10/2024 Elevated white blood cell count, unspecified (ICD-10 - D72.829) 09/10/2024 Cough (ICD-10 - R05.9) Plan Of Treatment Medication Medication Name Sig Start Date Stop Date Notes Promethazine-DM 6.25-15 MG/5ML 5 mL as needed Orally every 6 hrs for 5 days 09/10/2024 on unit Amoxicillin-Pot Clavulanate 875-125 MG 1 tablet Orally every 12 hrs for 7 days 09/10/2024 on unit, please deliver today Pending Test Test Name Order Date Blood Culture, Routine 09/10/2024 Next Appt Details Provider Name:Yunier Baumelizabeth s, 09/12/2024 10:40:00 AM, [address], [place], [address], Provider Name:Tabitha L Lucila rt, 09/13/2024 09:00:00 AM, [address], [place], [address], Progress Notes * Steven LAMDOB:1970 ( 54 yo M)Acc No.[id number]:09/10/2024 Patient: Steven ALLEN :1970 A ge:54 Y S ex:Male Phone: Address:[address] [place] [address], [id number] * Refills Start Amoxicillin-Pot Clavulanate Tablet, 875-125 MG, Orally, 14 Tablet, 1 tablet, every 12 hrs, 7 days, Refills=0 Start Promethazine-DM Syrup, 6.25-15 MG/5ML, Orally, 100 ML, 5 mL as needed, every 6 hrs, 5 days, Refills=0 Subjective: * Chief Complaints: * L abs * Medical History: * Surgical History: * Hospitalization/Major Diagno stic Procedure: * Medications: Objective: * Vitals: * Physical Examination: Assessment: * Assessment: 1. C ough - R05.9 2 . E levated white blood cell count, unspecified - D72.829 (Primary) Plan: * Treatment: 2. C ough Start Promethazine-DM Syrup, 6.25-15 MG/5ML, 5 mL as needed, Orally, every 6 hrs As needed, 5 days, 100 ML, Refills 0, Notes to Pharmacist: on unit. * Procedure Codes: * true * Date: Generated for Dennys kumar/Andres/eTransmitting on: 0 09/11/2024 06:19 PM FENCE ERECTOR SUPERVISOR
--- OUTSIDE RECORDS SUMMARY | 2024-09-11 18:19 | XMS_ITS ---
Author Organization [facility] Address [address] [place] [address] Care Team Providers Care Chief Human Resources Officer Name Role Phone Jose Gardner Primary Care Provider [phone] Tabitha Denis [phone] REASON FOR VISIT labs Encounters Encounter Location Date Provider Diagnosis [facility] [address] [place] [address] 09/10/2024 Tabitha Denis Elevated white blood cell count, unspecified D72.829 Assessments Encounter Date Diagnosis (ICD Code) Assessment Notes Treatment Notes Treatment Clinical Notes Section Notes 09/10/2024 Elevated white blood cell count, unspecified (ICD-10 - D72.829) Plan Of Treatment Pending Test Test Name Order Date Blood Culture, Routine 09/10/2024 Next Appt Details Provider Name:Yunier barcenas, 09/12/2024 10:40:00 AM, [address], [place], [address], Provider Name:Tabitha Gaytan rt, 09/13/2024 09:00:00 AM, [address], [place], [address], Progress Notes * Steven LAMDOB:1970 ( 54 yo M)Acc No.[id number]:09/10/2024 UNLOCKED PROGRESS NOTE Patient: Steven ALLEN Provider: Suzanne Denis APRN :1970 A ge:54 Y S ex:Male Date:09/10/2024 Phone: Address[facility] [facility] Pcp:Jose Gardner Subjective: * Chief Complaints: * 1 . Labs. * Medical History: Objective: * Vitals: Assessment: * Assessment: 1. E levated white blood cell count, unspecified - D72.829 Plan: * Treatment: * * Electronic signature of Angy Denis , [id number] on 09/11/2024 at 06:19 PM ENTERPRISE SOFTWARE DEVELOPER Sign off status: Pending * Provider: Suzanne Denis APRN Date: 0 09/10/2024 Generated for Dennys kumar/Andres/Homar on: 0 09/11/2024 06:19 PM ENTERPRISE SOFTWARE DEVELOPER
--- OUTSIDE RECORDS SUMMARY | 2024-09-11 18:19 | XMS_ITS | Referral Summary ---
Author Organization [facility] Address [address] [place] [address] Care Team Providers Care Other Wood Processing Machine Operator Name Role Phone Darlene Birch WILLOW MACHINE OPERATOR-AERIAL APPLICATOR PILOT Primary Care Provi edgar Source Comments [facility],non-owned Affiliates and Associated Physician Practices is amultiple site organization consisting of ambulatory clinics and hospital sitesin [place], [place], [place] and [place]. This disclosure is being madepursuant to the Care Everywhere program and may not contain all information available regarding this patient. Last updated 18.[facility] Encounters Date Type Department Care Team Description 08/09/2024 11:14 PM RATER ASSOCIATE - 08/10/2024 3:14 AM RATER ASSOCIATE Emergency ER at [address] [address] Zeb Landers DO Accidental overdose, initial encounter; Opiate overdose, accidental or unintentional, initial encounter ([facility]); Hyperglycemia Discharge Disposition: Home or Self Care 08/09/2024 Travel from Last 3 Months Allergies Active Allergy Reactions Criticality Noted Date Comments Hydrocodone Itching,Rash Medium 08/11/2016 Reaction: ITCHING, Reaction: Rash, Medications * Be aware that medications may not be up to date on this document. Alwaysverify current medications with the patient. Medication Sig Dispensed Refills Start Date End Date Status raNITIdine (ZANTAC) 150 MG tablet 06/15/2017 Active QUEtiapine (SEROQUEL) 200 MG tablet 02/23/2017 Active omeprazole (PRILOSEC) 40 MG capsule 06/15/2017 Active traZODone (DESYREL) 50 MG tablet 06/22/2017 Active citalopram (CELEXA) 20 MG tablet 11/24/2016 Active busPIRone (BUSPAR) 15 MG tablet 02/23/2017 Active citalopram (CELEXA) 40 MG tablet 06/22/2017 Active atorvastatin (LIPITOR) 20 MG tablet 06/15/2017 Active raNITIdine (ZANTAC) 150 MG tablet 02/03/2017 Active naloxone HCl (Narcan) 4 MG/0.1ML nasal spray [place] 1 (one) spray into the nose as needed (May repeat every 2 min in alternating nostrils until emergency medical help arrives for overdose) 2 Each 08/10/2024 Active Social History Tobacco Use Types Packs/Day Years [...] Comments Blood Pressure 130/85 08/10/2024 2:15 AM RATER ASSOCIATE Pulse 91 08/10/2024 2:15 AM RATER ASSOCIATE Temperature 36.7 C (98 F) 08/09/2024 11:21 PM RATER ASSOCIATE Respiratory Rate 14 08/10/2024 2:15 AM RATER ASSOCIATE Oxygen Saturation 94% 08/10/2024 2:15 AM RATER ASSOCIATE Inhaled Oxygen Concentration - - Weight 79.8 kg (176 lb) 06/28/2017 10:11 AM RATER ASSOCIATE Height 182.9 cm (6') 06/28/2017 10:11 AM RATER ASSOCIATE Body Mass Index 23.87 06/28/2017 10:11 AM RATER ASSOCIATE Plan of Treatment Not on file Procedures Procedure Name Priority Date/Time Associated Diagnosis Comments XR CHEST 1VW PORTABLE STAT 08/09/2024 11:47 PM RATER ASSOCIATE Accidental overdose, initial encounter BASIC METABOLIC PANEL (CALCIUM TOTAL) STAT 08/09/2024 11:39 PM RATER ASSOCIATE CBC W AUTO DIFFERENTIAL STAT 08/09/2024 11:39 PM RATER ASSOCIATE EKG 12-LEAD STAT 08/09/2024 11:28 PM RATER ASSOCIATE Accidental overdose, initial encounter from Last 3 Months Results * XR CHEST 1VW PORTABLE (08/09/2024 11:47 PM RATER ASSOCIATE) Anatomical Region Laterality Modality Chest Computed Radiogr aphy 08/10/2024 8:19 AM RATER ASSOCIATE Impressions 08/10/2024 8:20 AM RATER ASSOCIATE IMPRESSION: No acute disease. > Interpreting Provider: Lenin Bullard MD on 08/10/2024 8:20 AM Narrative 08/10/2024 8:20 AM RATER ASSOCIATE Portable Chest AP History: Poisoning. Overdose. Left [...] Bullard MD on 08/10/2024 8:20 AM Zeb Landers DO DIAGNOSTIC IMAGING O RDERABLES * CBC W AUTO DIFFERENTIAL (08/09/2024 11:39 PM RATER ASSOCIATE) WBC 8.4 4.0 - 10.7 x10E9/L 08/09/2024 11:59 PM RATER ASSOCIATE [facility] RBC Count 4.86 4.30 - 5.80 x10E12/L 08/09/2024 11:59 PM RATER ASSOCIATE [facility] Hemoglobin 14.7 13.3 - 17.5 g/dL 08/09/2024 11:59 PM RATER ASSOCIATE [facility] Hematocrit 44.2 38.7 - 51.1 % 08/09/2024 11:59 PM RATER ASSOCIATE [facility] MCV 90.9 80.0 - 98.0 fL 08/09/2024 11:59 PM RATER ASSOCIATE [facility] MCH 30.2 26.7 - 33.6 pg 08/09/2024 11:59 PM RATER ASSOCIATE [facility] MCHC 33.3 31.7 - 36.3 g/dL 08/09/2024 11:59 PM RATER ASSOCIATE [facility] RDW-CV 13.5 11.3 - 14.8 % 08/09/2024 11:59 PM [facility] Platelet Count 304 150 - 420 x10E9/L 08/09/2024 11:59 PM [facility] MPV 9.9 7.8 - 11.4 fL 08/09/2024 11:59 PM [facility] Neutrophil % 60.3 41.0 - 74.0 % 08/09/2024 11:59 PM [facility] Lymphocyte % 29.8 17.0 - 47.0 % 08/09/2024 11:59 PM [facility] Monocyte % 5.4 3.0 - 11.0 % 08/09/2024 11:59 PM [facility] Eosinophil % 3.0 0.0 - 7.0 % 08/09/2024 11:59 PM [facility] Basophil % 0.5 0.0 - 1.6 % 08/09/2024 11:59 PM [facility] Immature Granulocytes % 1.0 0.0 - 1.0 % 08/09/2024 11:59 PM [facility] Neutrophil Absolute 5.08 1.60 - 7.50 x10E9/L 08/09/2024 11:59 PM [facility] Lymphocyte Absolute 2.51 1.00 - 4.40 x10E9/L 08/09/2024 11:59 PM [facility] Monocyte Absolute 0.45 0.15 - 1.00 x10E9/L 08/09/2024 11:59 PM [facility] Eosinophil Absolute 0.25 0.00 - 0.60 x10E9/L 08/09/2024 11:59 PM [facility] Basophil Absolute 0.04 0.00 - 0.13 x10E9/L 08/09/2024 11:59 PM [facility] Blood BLOOD SPECIMEN / Unknown Venipuncture / Unknown 08/09/2024 11:39 PM RATER ASSOCIATE 08/09/2024 11:48 PM [facility] Zeb Landers DO LAB - HEMATOLOGY ORD ERABLES [facility] [address] [place] [address] * (ABNORMAL) BASIC METABOLIC PANEL (CALCIUM TOTAL) (08/09/2024 11:39 PM [facility]) Glucose 252(H) 70 - 99 mg/dL 08/10/2024 12:05 AM [facility] Sodium 138 136 - 145 mmol/L 08/10/2024 12:05 AM [facility] Potassium 4.7 3.5 - 5.1 mmol/L 08/10/2024 12:05 AM [facility] Chloride 105 98 - 107 mmol/L 08/10/2024 12:05 AM [facility] CO2 22 22 - 29 mmol/L 08/10/2024 12:05 AM [facility] Calcium 8.5 8.4 - 10.4 mg/dL 08/10/2024 12:05 AM [facility] Anion Gap 11 6 - 16 mmol/L 08/10/2024 12:05 AM [facility] BUN 11 7 - 26 mg/dL 08/10/2024 12:05 AM [facility] Creatinine 1.21 0.72 - 1.25 mg/dL 08/10/2024 12:05 AM [facility] eGFR by CKD-EPI 72(L) >=90 mL/min/1.7 3 m2 08/10/2024 12:05 AM [facility] Blood BLOOD SPECIMEN / Unknown Venipuncture / Unknown 08/09/2024 11:39 PM RATER ASSOCIATE 08/09/2024 11:48 PM [facility] Zeb Landers DO LAB - CHEMISTRY IQRA MEZA [facility] [address] [place] [address] * EKG 12-LEAD (08/09/2024 11:28 PM [facility]) Ventricular Rate 81 BPM [facility] Atrial Rate 81 BPM [facility] P-R Interval 128 ms [facility] QRS Duration ms 90 ms [facility] Q-T Interval ms 380 ms [facility] QTC Calculation (Bezet) 441 ms [facility] Calculated P [place] 62 degrees [facility] Calculated R [place] 53 degrees [facility] Calculated T [place] 67 degrees [facility] Interpretation EKG Normal sinus rhythm Normal ECG No previous ECGs available Confirmed by PAL ISLAS MD ([id number]) on 08/10/2024 4:05:41 PM [facility] 08/09/2024 11:2 8 PM RATER ASSOCIATE 08/10/2024 4:05 PM RATER ASSOCIATE Zeb Landers DO ECG ORDERABLES [facility] from Last 3 Months Care Teams Other Wood Processing Machine Operator Relationship Specialty Start Date End Date Darlene Birch, WILLOW MACHINE OPERATOR-AERIAL APPLICATOR PILOT PCP - General 02/03/17
--- OUTSIDE RECORDS SUMMARY | 2024-09-11 18:19 | XMS_ITS | Patient Health Record ---
Author Organization [facility] Address [address] [place] [address] Care Team Providers Care Supervisor Cell Maintenance Name Role Phone Jose Gardner Primary Care Provider Yunier Manjarrez Unavailable [phone] Brodie Nunez Unavailable [phone] Maddi English Unavailable [phone] Merline Boogei Unavailable [phone] Tabitha Denis Unavailable [phone] Adriana Montes Unavailable [phone] Allergies Allergen (clinical drug ingredient) Drug/Non Drug Allergy documented on EMR Reaction Allergy Type Onset Date Status hydrocodone Hydrocodone hives Drug Allergy Act kamran Results Component Value Reference Range Notes Hemoglobin A1c* Reviewed date:09/09/2024 06:04:18 PM Interpretation: Performing Lab:[facility], [address] [facility], Phone - [phone], Director - Iris Notes/Report: Hemoglobin A1c 6.4 4.8-5.6 % . Prediabetes: 5.7 - 6.4 Diabetes: >6.4 Glycemic control for adults with diabetes: <7.0 Vitamin B12* Reviewed date:09/09/2024 06:04:31 PM Interpretation: Performing [facility], Phone - [phone], Director - Iris Notes/Report: Vitamin B12 568 620-9446 pg/mL CBC With Differential/Platel et* Reviewed date:09/09/2024 06:04:07 PM Interpretation: Performing Lab:[facility], [address] [employer], [place], Phone - [phone], Director - [facility] Notes/Report: WBC 12.9 3.4-10.8 x10E3/uL RBC 3.69 4.14-5.80 x10E6/uL Hemoglobin 10.9 13.0-17.7 g/dL Hematocrit 33.4 37.5-51.0 % MCV 91 79-97 fL MCH 29.5 26.6-33.0 pg MCHC 32.6 31.5-35.7 g/dL RDW 12.6 11.6-15.4 % Platelets 493 150-450 x10E3/uL Neutrophils 71 Not Estab. % Lymphs 13 Not Estab. % Monocytes 9 Not Estab. % Eos 5 Not Estab. % Basos 1 Not Estab. % Neutrophils (Absolute) 9.3 1.4-7.0 x10E3/uL Lymphs (Absolute) 1.7 0.7-3.1 x10E3/uL Monocytes(Absolute) 1.1 0.1-0.9 x10E3/uL Eos (Absolute) 0.6 0.0-0.4 x10E3/uL Baso (Absolute) 0.1 0.0-0.2 x10E3/uL Immature Granulocytes 1 Not Estab. % Immature Grans (Abs) 0.1 0.0-0.1 x10E3/uL TSH+Free T4* Reviewed date:09/09/2024 06:04:45 PM Interpretation: Performing Lab:[facility] [place], [address] [facility], Phone - [phone], Director - [facility] Notes/Report: TSH 2.440 0.450-4.500 uIU/mL T4,Free(Direct) 0.97 0.82-1.77 ng/dL Lipid Panel* Reviewed date:09/09/2024 06:04:40 PM Interpretation: Performing Lab:[facility] [place], [address] [facility], Phone - [phone], Director - [facility] Notes/Report: Cholesterol, Total 153 100-199 mg/dL Triglycerides 130 0-149 mg/dL HDL Cholesterol 45 >39 mg/dL VLDL Cholesterol Vick 23 5-40 mg/dL LDL Chol Calc ([facility]) 85 0-99 mg/dL CMP 14 Comprehensive Metabol ic Panel* Reviewed date:09/09/2024 06:03:41 PM Interpretation: Performing Lab:[facility] [place], [address] [facility], Phone - [phone], Director - Iris Notes/Report: Glucose 87 70-99 mg/dL BUN 10 6-24 mg/dL Creatinine 0.87 0.76-1.27 mg/dL eGFR 103 >59 mL/min/1.73 BUN/Creatinine Ratio 11 9-20 Sodium 142 134-144 mmol/L Potassium 4.9 3.5-5.2 mmol/L Chloride 100 96-106 mmol/L Carbon Dioxide, Total 25 20-29 mmol/L Calcium 9.0 8.7-10.2 mg/dL Protein, Total 6.3 6.0-8.5 g/dL Albumin 3.4 3.8-4.9 g/dL Globulin, Total 2.9 1.5-4.5 g/dL Bilirubin, Total <0.2 0.0-1.2 mg/dL Alkaline Phosphatase 152 44-121 IU/L AST (SGOT) 31 0-40 IU/L ALT (SGPT) 48 0-44 IU/L Vitamin D, 25-Hydroxy* Reviewed date:09/09/2024 06:04:53 PM Interpretation: Performing Lab:[facility] [place], [address] [facility], Phone - [phone], Director - Iris Notes/Report: Vitamin D, 25-Hydroxy 20.1 30.0-100.0 ng/mL Vitamin D deficiency has been defined by the Sullivan of Medicine and an Endocrine Society practice guideline as a level of serum 25-OH vitamin D less than 20 ng/mL (1,2). The Endocrine Society went on to further define vitamin D insufficiency as a level between 21 and 29 ng/mL (2). 1. IOM (Sullivan of Medicine). 2010. Dietary reference intakes for calcium and D. [place]: The National Academies Press. 2. Mihir MF, Michael SCOTT, Val VILLALPANDO, et al. Evaluation, treatment, and prevention of vitamin D deficiency: an Endocrine Society clinical practice guideline. JCEM. 2010; 96(7):1911-30. 12 Panel Urine Drug Screen Reviewed date:08/21/2024 04:05:58 PM Interpretation: Performing Lab: Notes/Report: THC pos LAURA neg MOP (OPI) neg AMP neg MET neg BAR neg BZO neg MDMA neg MTD neg OXY neg PCP neg BUP neg Breathalyzer Reviewed date:08/21/2024 04:04:38 PM Interpretation: Performing Lab: Notes/Report: MAYR 00.21 QuantiFERON-TB Gold Plus (18 2880) Reviewed date:08/26/2024 04:23:29 PM Interpretation:Negative Performing Lab:[facility], [address] [facility], Phone - [phone], Director - [facility] Notes/Report: QuantiFERON Incubation Incubation performed. QuantiFERON-TB Gold Plus Negative Negative No response to M tuberculosis antigens detected. Infection with M tuberculosis is unlikely, but high risk individuals should be considered for additional testing (ATS/IDSA/CDC Clinical Practice Guidelines, 2017). The reference range is an Antigen minus Nil result of <0.35 IU/mL. Chemiluminescence immunoassay methodology QuantiFERON Criteria QuantiFERON-TB Gold Plus is a qualitative indirect test for M tuberculosis infection (including disease) and is intended for use in conjunction with risk assessment, radiography, and other medical and diagnostic evaluations. The QuantiFERON-TB Gold Plus result is determined by subtracting the Nil value from either TB antigen (Ag) value. The Mitogen tube serves as a control for the test. QuantiFERON TB1 Ag Value 0.01 QuantiFERON TB2 Ag Value 0.02 QuantiFERON Nil Value 0.01 QuantiFERON Mitogen Value 2.16 PSA Total (Reflex To Free) Reviewed date:09/09/2024 06:12:26 PM Interpretation:Normal Performing [facility], [address] [facility], [place], Phone - [phone], Director - [facility] Notes/Report: Prostate Specific Ag 3.3 0.0-4.0 ng/mL Óscar ECLIA methodology. . According to the [place] [employer], Serum PSA should decrease and remain at undetectable levels after radical prostatectomy. The AUA defines biochemical recurrence as an initial PSA value 0.2 ng/mL or greater followed by a subsequent confirmatory PSA value 0.2 ng/mL or greater. Values obtained with different assay methods or kits cannot be used interchangeably. Results cannot be interpreted as absolute evidence of the presence or absence of malignant disease. Reflex Criteria The percent free PSA is performed on a reflex basis only when the total PSA is between 4.0 and 10.0 ng/mL. Reason For Referral [facility] and [facility] Diagnosis 1 Homeless (Z59.00) Referral Organization [facility] Referring Provider First Name Adriana Referring Provider Last Name Jyoti Referring Provider Speciality Psychiatry Referred Provider [facility] Clinical Notes HN tried to reach e client. HN left a message on Steven's . HN is hoping to discuss the housing options and to see what the client prefers and or is eligible for. HN told client on the VM once we were able to connect, that we could discuss setting some appointments to complete forms., Keisha Elder 09/03/2024 10:10:23 AM >HN left another message with the client. HN informed the client that his provider asked for the HN to reach out to the client regarding housing and disability. HN left a message for the client to return a call to discuss what the client feels they need assistance with., Keisha Elder 09/04/2024 01:59:42 PM >DOMINIC called the client again about the referral from Shelbi Montes. Unable to reach the client for the second time. HN will follow up with the client again tomorrow if unable to reach the client, a referral letter will be sent by mail.Jael Kristina L 09/10/2024 03:54:17 PM >new referral sent from provider. HN will close out this encounter and work on the new encounter. Client is on the MRU until 10-19-24 per Shelbi Montes Referral Priority Routine Reason Patient is going to discharge from the MRU on 10/19/24. He would like assistance with housing Diagnosis 1 Mood disorder (F39) Referral Organization [facility] Referring Provider First Name Adriana Referring Provider Last Name Jyoti Referring Provider Speciality Psychiatry Referred Provider [facility] Clinical Notes Keisha Elder 09/10/2024 03:51:57 PM >HN has been trying to reach this client with multiple failed attempts. HN will reach out to the men's unit to try to set up an appointment to help with housing paperwork. Referral Priority Routine Medications Medication SIG (Take, Route, Frequency, Duration) Notes Start Date End Date Status Mirtazapine 15 MG 1 tablet at bedtime Orally Once a day for 7 days Patient on MRU, please deliver 09/10/2024 Active hydrOXYzine HCl 25 MG 1 tablet as needed Orally every 4 hours As needed 08/23/2024 Active Albuterol Sulfate HFA 108 (90 Base) MCG/ACT 1-2 puff as needed Inhalation every 4 hrs 08/29/2024 Active QUEtiapine Fumarate 50 MG 1 tablet Orally twice a day for 7 days Patient on MRU, please deliver 08/23/2024 Active Nicotine 21 MG/24HR 1 patch to skin Transdermal Once a day Active Tamsulosin HCl 0.4 MG 1 capsule Orally Once a day Active Lidocaine 5 % 1 patch remove after 12 hours Externally twice a day Clarification, 1 patch every 12 hours. Active Vitamin D (Ergocalciferol) 58118 UNIT 1 capsule Orally once a week for 8 weeks for 56 days Patient on MRU, please deliver 09/10/2024 Active Meloxicam 7.5 MG 1 tablet Orally Once a day Not-Taking Acetaminophen 500 MG 1 capsule as needed Orally every 6 hrs Active Methocarbamol 750 MG 1 tablet Orally every 4 hrs Not-Taking Miconazole 7 2 % 1 applicatorful twice a day Once a day Active Promethazine-DM 6.25-15 MG/5ML 5 mL as needed Orally every 6 hrs for 5 days As needed on unit 09/10/2024 Active Furosemide 20 MG 1 tablet Orally Once a day for 3 days on unit 09/06/2024 Active Amoxicillin-Pot Clavulanate 875-125 MG 1 tablet Orally every 12 hrs for 7 days on unit, please deliver today 09/10/2024 Active Buprenorphine HCl-Naloxone HCl 4-1 mg DISSOLVE 1 FILM UNDER THE TONGUE TWICE A DAY for 7 09/06/2024 Active tiZANidine HCl 4 MG 1 tablet at bedtime as needed Orally Once a day for 30 days on unit 09/06/2024 Active Pantoprazole Sodium 40 MG 1 tablet 1/2 to 1 hour before morning meal Orally Once a day Active Social History Tobacco Use: Social History Observation Description Date Details (start date - stop date) Current Smoker NA - NA PRAPARE Question Answer Notes Date Completed/Updated: 08/21/2024 What is your current housing situation? I do not have housing (staying with others, in a hotel, in a assisted, living outside on the street, on a beach, or in a park) Are you worried about losing your housing? Yes What is the highest level of school that you have finished? Less than a high school degree What is your current work situation? Unemployed and seeking work In the past year, have you o r any family members you live with been unable to get any of the following when it was really needed? Check all that apply Utilities,Other (please write in notes) Has lack of transportation k ept you from medical appointments, meetings, work or from getting things needed for daily living? Yes, it has kept me from non-medical meetings, appointments, work, or getting things needed for daily living How often do you see or talk to people that you care about and feel close to? (For example: talking to friends on the phone, visiting friends or family, going to restoration or club meetings) 1 or 2 times a week How stressed are you? Stress is when someone feels tense, nervous, anxious, or can\t sleep at night because their mind is troubled Very much In the past year have you sp ent more than 2 nights in a row in a skilled nursing, jail, fdc center, or juvenile correctional facility? No Are you a refugee? No What country are you from? [place] Do you feel physically and e motionally safe where you currently live? No In the past year, have you b een afraid of your partner or ex-partner? Yes PRAPARE Score: 14 Enabling Services Provided? Yes Please specify Case Management Asse ssment First Visit Tobacco Control (Standard) Question Answer Notes Tobacco use: Current every day smoker Additional Findings: Tobacco user Heavy cigarett e smoker (20-39 cigs/day) Problems Problem Type SNOMED Code ICD Code Onset Dates Problem Status W/U Status Risk Notes Problem Leukocytosis (082929948) Elevated white blood cell count, unspecified (D72.829) Active confirmed Problem Tobacco user (690165711) Nicotine dependence, unspecified, uncomplicated (F17.200) Active confirmed Problem Insomnia (580546103) Insomnia (G47.00) Active confirmed Problem Mood disorder (05976853) Mood disorder (F39) Active confirmed Problem Vitamin D deficiency (31394787) Vitamin D deficiency (E55.9) Active confirmed Problem Generalized anxiety disorder (95690031) FAVIAN (generalized anxiety disorder) (F41.1) Active confirmed Problem History of methamphetamine use (50353171543009475 ) 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) Active confirmed Problem 316328869 Enlarged prostat e (N40.0) Active confirmed Problem Tobacco use (759226847) Tobacco use disorder (F17.200) Active confirmed Problem Mental disorder caused by drug (923810739) Opioid use disorder (F11.99) Active confirmed Vital Signs Heart Rate 91 /min 09/06/2024 91 Respiratory Rate 16 /min 09/06/2024 91 Blood pressure diastolic 70 mm Hg 09/06/2024 91 Oximetry 98 % 09/06/2024 91 Height 71 in 09/06/2024 91 Blood pressure systolic 122 mm Hg 09/06/2024 91 Weight 163 lbs 09/06/2024 91 BMI 22.73 kg/m2 09/06/2024 91 Encounters Encounter Location Date Provider Diagnosis [facility] [place] [place] [address] 08/22/2024 Brodie Nunez [facility] [place] [address] 08/21/2024 Tabitha Denis Nicotine dependence, unspecified, uncomplicated F17.200 ; Adult general medical exam Z00.00 ; Opioid use disorder F11.99 and Methamphetamine use F15.[address] [place] [address] 08/21/2024 Merline Boogie [address] [address] 08/23/2024 Adriana Jyoti Mood disorder F39 ; Insomnia G47.00 ; FAVIAN (generalized anxiety disorder) F41.1 ; Therapeutic drug monitoring Z51.81 and Screening for deficiency anemia Z13.0 [facility] [place] [address] 08/24/2024 Yunier Manjarrez Opioid use disorder F11.99 and Tobacco use disorder F17.200 [facility] [place] [address] 08/29/2024 Brodie Nunez Persistent cough R05 .3 ; Other chest pain R07.89 ; Enlarged prostate N40.0 and Nicotine dependence, unspecified, uncomplicated F17.200 [facility] [address] [place] [place] [address] 09/06/2024 Tabitha Denis Nicotine dependence, unspecified, uncomplicated F17.200 ; Edema R60.9 ; Screening for prostate cancer Z12.5 and Muscle spasm of back M62.830 [facility] [address], [place] [address] 09/10/2024 Adriana Montes Mood disorder F39 ; Insomnia G47.00 ; FAVIAN (generalized anxiety disorder) F41.1 and Vitamin D deficiency E55.9 [facility] [place] [address] 09/05/2024 Brodie Nunez [facility] [place] [address] 08/24/2024 Adriana Montes [address] [facility] [place] [address] 08/30/2024 Tabitha Denis Hemoptysis R04.2 [address] [place] [address] [place] [address] 09/05/2024 Maddi English Mood disorder F39 [address] [facility] [place] [address] 09/10/2024 Brodie Nunez Elevated white blood cell count, unspecified D72.829 and Cough R05.9 Assessments Encounter Date Diagnosis (ICD Code) Assessment Notes Treatment Notes Treatment Clinical Notes Section Notes 08/21/2024 Nicotine dependence, unspecified, uncomplicated (ICD-10 - F17.200) 08/21/2024 Adult general medical exam (ICD-10 - Z00.00) 08/30/2024 Hemoptysis (ICD-10 - R04.2) 09/10/2024 Elevated white blood cell count, unspecified (ICD-10 - D72.829) 09/10/2024 Cough (ICD-10 - R05.9) 09/10/2024 Insomnia (ICD-10 - G47.00) 09/10/2024 Mood disorder (ICD-10 - F39) Begin mirtazapine. Take as prescribed. Reviewed purpose - reduce anxiety, improve sleep, decrease depression, and increase appetite; benefits - reduce anxiety, improve sleep, decrease depression, and increase appetite; and risks - including increased appetite, weight gain, increased thoughts of suicidality, and prompting manic episodes in some individuals. Call for problems with medication, side effects or need for dosage change. 09/06/2024 Nicotine dependence, unspecified, uncomplicated (ICD-10 - F17.200) 09/06/2024 Edema (ICD-10 - R60.9) 09/05/2024 Mood disorder (ICD-10 - F39) 08/29/2024 Other chest pain (ICD-10 - R07.89) 08/29/2024 Persistent cough (ICD-10 - R05.3) 08/24/2024 Tobacco use disorder (ICD-10 - F17.200) 08/24/2024 Opioid use disorder (ICD-10 - F11.99) 08/23/2024 Insomnia (ICD-10 - G47.00) 08/23/2024 Mood disorder (ICD-10 - F39) Start Quetiapine. Take as prescribed. Reviewed purpose (mood stability), benefits, and risks - low blood pressure, metabolic syndrome with high cholesterol or high blood sugars, change in cardiac conduction, nausea, vomiting, temporary or permanent movement disorders, and akathisia. Call for problems with medication, side effects or need for dosage change. 08/23/2024 FAVIAN (generalized anxiety disorder) (ICD-10 - F41.1) Start hydroxyzine. Take as prescribed. Reviewed purpose (reduce anxiety and/or promote sleep), benefits, and risks - including sedation and dry mouth. Call for problems with medication, side effects or need for dosage change. 08/29/2024 Enlarged prostate (ICD-10 - N40.0) 09/10/2024 FAVIAN (generalized anxiety disorder) (ICD-10 - F41.1) 09/06/2024 Screening for prostate cancer (ICD-10 - Z12.5) 08/21/2024 Opioid use disorder (ICD-10 - F11.99) 08/21/2024 Methamphetamine use (ICD-10 - F15.10) 09/10/2024 Vitamin D deficiency (ICD-10 - E55.9) 09/06/2024 Muscle spasm of back (ICD-10 - M62.830) 08/29/2024 Nicotine dependence, unspecified, uncomplicated (ICD-10 - F17.200) 08/23/2024 Therapeutic drug monitoring (ICD-10 - Z51.81) 08/23/2024 Screening for deficiency anemia (ICD-10 - Z13.0) 08/21/2024 Other Continue treatment as recommended by [place] staff. Encouraged patient to obtain routine medical care with patient's own primary care provider or establish as a patient at [facility] if no current primary care provider. 08/21/2024 Other Archeology Faculty Member met with Steven to assist in working on building skills to help the consumer gain confidence in their recovery journey. The quality analyst/technical writer practiced with Steven implementing problem solving skills such as deep breathing, taking a moment away, listening to calming sounds, etc. to help facilitate exploration of options and understanding of life triggers that impact substance use. Steven indicated that his partner is sometimes a trigger to use. The quality analyst/technical writer encouraged and engaged in critical thinking of how to use natural supports and coping skills to help manage symptoms in the moment. Steven stated he had few natural supports at this time stating he recently broke up with his girl friend and has limited contact with his youngest son. Archeology Faculty Member also worked on modeling and practicing safe and healthy coping skills. 08/23/2024 Other May self-administer medications or be administered own oral medications per [place] protocols. Provided informed consent with understanding of side effects, adverse effects, risks and benefits as well as alternative treatments as previously discussed and with the above recommended medications & other aspects of the treatment program. Agrees to return sooner if symptoms worsen or suicidal or homicidal ideations occur. Plan: -Start Seroquel 25 mg BID -Start Hydroxyzine 25 mg q4hrs PRN *Labs ordered -Follow up: 2 weeks [] Hard Rx handed to patient [] Rx phoned into pharmacy [x] Rx faxed/e-prescribed into pharmacy [x] PDMP Reviewed [] [employer] Reviewed Encouraged by Adriana Montes PMHNP-BC to: [] consider utilizing therapist/counselor /mental health social worker/psychologist , referral given [x] continue with therapist/counselor /mental health social worker/psychologist Psychoeducation: -Treatment options discussed in detail with patient/guardian verbalizing understanding of treatment rationales. -Side effects and benefits of all medications prescribed discussed at length between psychiatric prescribing provider and patient/guardian along with the risks associated of [id number] interactions, including but not limited to prescription medications, OTC medications, vitamins, minerals and herbal supplements. -Patient/Guardian and provider dialogue showcased verbalized understanding from patient on rationales of medication risk vs benefits. -Information with neurobiology of presenting neurotransmitter disorder, mood stability, sleep hygiene and 7-8 hours of uninterrupted sleep per night with wakeful and refreshed awakening and day long alertness discussed. -Reduction of stress and anxiety to aid in focus and concentration discussed, again, with patient/guardian physically nodding, voicing understanding, and engaged in treatment plan with Adriana Montes [facility]. -Perceiving complete understanding of rationale by patient/guardian and willingness to adhere to formulated plan of care by prescriber with patient/guardian buy-in, willingness to participate actively in plan of care and willing to take charge of own care. -Although geared for female patients, all patients/guardians are informed by prescribing provider of risks of medications that could potentially be taken by female/women within their lower [place] of influence and that women who use medicine during have a higher chance of having a baby with defects. -Patient/Guardian denies being and/or knowing of women who are at present and denies wanting to become in the foreseeable future, 0-6 months from now. -Patient/Guardian again informed of the risk of pharmaceutical medications consumed during and how there are potential negative effects on the developing fetus. -Patient/Guardian verbalizes understanding of rationale and physically nods head in agreement that if a should occur, to consult with provider, METAL ANNEALER and/or Nurse Typing Bookkeeper to determine if prescribed medications should or should not be continued. -Instructions regarding both the medical/pharmacolog ical and non-pharmacologic aspects of the treatments employed were given, and the patient/guardian seemed to understand this. Risks and benefits of treatment, and of non-treatment, were also discussed. The patient/guardian understands the more frequent side effects associated with the medications. -The use of psychotherapy was addressed today and will continue on an as needed basis for the foreseeable future. The choice is, of course, ultimately left to the patient/guardian. -Patient/Guardian was encouraged to make a follow-up appointment for the next visit. -Additional treatment was discussed and has been addressed on an ongoing basis within the context of this patient's illness, resources, progress, and other appropriate factors. Being compliant with a regular exercise routine, consistent medication use, ongoing psychotherapy, eating and sleeping well, as well as the importance of handling stress, was discussed. 08/24/2024 Other Discussed medication side effects, adverse effects, risks, benefits, as well as interactions. Encouraged non-use of opioids. Has naloxone. Recommended participation in recovery groups/counseling services. Agrees to contact office with questions or concerns. 09/06/2024 Other Patient may self-administe r their own medications or may self-administe r their own oral medications per [place] Protocol. 09/10/2024 Other May self-administer medications or be administered own oral medications per [place] protocols. Provided informed consent with understanding of side effects, adverse effects, risks and benefits as well as alternative treatments as previously discussed and with the above recommended medications & other aspects of the treatment program. Agrees to return sooner if symptoms worsen or suicidal or homicidal ideations occur. Unable to complete full AIMS due to nature of appt, denies any irregular muscle movements or facial tics; no irregular movements observed during Zoom appt. Plan: -Increase Quetiapine to 50 mg BID -Continue Hydroxyzine 25 mg q4hrs PRN -Start Vitamin D 22745 unit once weekly x8 weeks -Start Mirtazapine 15 mg QHS *Labs reviewed with patient, recommended he follow up with his PCP *Sent referral to health navigator for housing and job assistance -Follow up: 1 week, on 10/18/24 [] Hard Rx handed to patient [] Rx phoned into pharmacy [x] Rx faxed/e-prescribed into pharmacy [x] PDMP Reviewed [] [facility] Reviewed Encouraged by Adriana Montes PMHNP-BC to: [] consider utilizing therapist/counselor /mental health social worker/psychologist , referral given [x] continue with therapist/counselor /mental health social worker/psychologist Psychoeducation: -Treatment options discussed in detail with patient/guardian verbalizing understanding of treatment rationales. -Side effects and benefits of all medications prescribed discussed at length between psychiatric prescribing provider and patient/guardian along with the risks associated of [id number] interactions, including but not limited to prescription medications, OTC medications, vitamins, minerals and herbal supplements. -Patient/Guardian and provider dialogue showcased verbalized understanding from patient on rationales of medication risk vs benefits. -Information with neurobiology of presenting neurotransmitter disorder, mood stability, sleep hygiene and 7-8 hours of uninterrupted sleep per night with wakeful and refreshed awakening and day long alertness discussed. -Reduction of stress and anxiety to aid in focus and concentration discussed, again, with patient/guardian physically nodding, voicing understanding, and engaged in treatment plan with Adriana Montes [facility]. -Perceiving complete understanding of rationale by patient/guardian and willingness to adhere to formulated plan of care by prescriber with patient/guardian buy-in, willingness to participate actively in plan of care and willing to take charge of own care. -Although geared for female patients, all patients/guardians are informed by prescribing provider of risks of medications that could potentially be taken by female/women within their lower [place] of influence and that women who use medicine during have a higher chance of having a baby with defects. -Patient/Guardian denies being and/or knowing of women who are at present and denies wanting to become in the foreseeable future, 0-6 months from now. -Patient/Guardian again informed of the risk of pharmaceutical medications consumed during and how there are potential negative effects on the developing fetus. -Patient/Guardian verbalizes understanding of rationale and physically nods head in agreement that if a should occur, to consult with provider, METAL ANNEALER and/or Nurse Typing Bookkeeper to determine if prescribed medications should or should not be continued. -Instructions regarding both the medical/pharmacolog ical and non-pharmacologic aspects of the treatments employed were given, and the patient/guardian seemed to understand this. Risks and benefits of treatment, and of non-treatment, were also discussed. The patient/guardian understands the more frequent side effects associated with the medications. -The use of psychotherapy was addressed today and will continue on an as needed basis for the foreseeable future. The choice is, of course, ultimately left to the patient/guardian. -Patient/Guardian was encouraged to make a follow-up appointment for the next visit. -Additional treatment was discussed and has been addressed on an ongoing basis within the context of this patient's illness, resources, progress, and other appropriate factors. Being compliant with a regular exercise routine, consistent medication use, ongoing psychotherapy, eating and sleeping well, as well as the importance of handling stress, was discussed. Plan Of Treatment Future Test Test Name Order Date Xray : Chest (PA lateral) 08/30/2024 Next Appt Details Provider Name:Yunier barcenas, 09/12/2024 10:40:00 AM, [address], [place], [address], Provider Name:Tabitha Gaytan rt, 09/13/2024 09:00:00 AM, [address], [place], [address], Insurance Providers Payer Name Payer Address Payer Phone Subscriber Number Group Number Insured Name Patient Relationship to Insured Coverage Start Date Coverage End Date [facility] [employer] [id number] [place] [id number] Steven Boggs Self - patient is the insured Medical (General) History Medical History History ICD Code depression schizophrenia bipolar Hospitalization History Reason Date(Month/Year) over dose 07/2024
--- OUTSIDE RECORDS SUMMARY | 2024-09-11 18:19 | XMS_ITS | Clinical Summary ---
Author Organization [facility] Address [address] [place] [address] Phone Care Team Providers Care Dance Entertainer Name Role Phone Jose Cardoso APRN, HOT HEAD MACHINE OPERATOR Primary Care Provider + Social History Tobacco Use Types Packs/Day Years Used Date Smoking Tobacco: Never Assessed Sex and Gender Information Value Date Recorded Sex Assigned at Not on file Legal Sex Male 10:55 PM CDT Gender Identity Not on file Sexual Orientation Not on file Plan of Treatment Health Maintenance Due Date Last Done Comments Hepatitis C Virus (HCV) Screening 1971 TdaP Immunization 1971 Hepatitis B Immunization (1 of 3 - 19+ 3-dose series) 1990 Colonoscopy 2016 Colorectal Cancer Screening 2016 Cologuard 2021 Immunochemical Fecal Occult Blood 2021 Pneumococcal Immunization (5 0+ years) (1 of 1 - PCV) 2021 Zoster Immunization (1 of 2) 2021 Influenza Immunization (#1) 2024 SARS-COV-2 Immunization ( - 2023- season) 2024 Respiratory Syncytial Virus (RSV) Immunization (Adult) (1 - 1-dose 75+ series) 2046 Meningococcal Immunization (ACWY) Aged Out No longer eligible based on patient's age to complete this topic Pneumococcal Immunization Combined Aged Out No longer eligible based on patient's age to complete this topic Rotavirus Immunization Aged Out No lo nger eligible based on patient's age to complete this topic Insurance [facility] Care Teams Dance Entertainer Relationship Specialty Start Date End Date Jose Cardoso APRN, KRISTINA [id number] [place] [address] PCP - General Internal Medicine 08/23/16
--- OUTSIDE RECORDS SUMMARY | 2024-09-11 18:19 | XMS_ITS ---
Author Organization [facility] Address [address] [place] [address] Care Team Providers Care Heating Technician Name Role Phone Jose Gardner Primary Care Provider [phone] Adriana Montes Unavailable [phone] Allergies Allergen (clinical drug ingredient) Drug/Non Drug Allergy documented on EMR Reaction Allergy Type Onset Date Status hydrocodone Hydrocodone hives Drug Allergy Act kamran Reason For Referral Reason Patient is going to discharge from the MRU on 10/19/24. He would like assistance with housing Diagnosis 1 Mood disorder (F39) Referral Organization [facility] Referring Provider First Name Adriana Referring Provider Last Name Jyoti Referring Provider Speciality Psychiatry Referred Provider Specialty Behavioral [facility] Clinical Notes Keisha Elder 09/10/2024 03:51:57 PM >HN has been trying to reach this client with multiple failed attempts. HN will reach out to the men's unit to try to set up an appointment to help with housing paperwork. Referral Priority Routine REASON FOR VISIT 2 Week F/U Medications Medication SIG (Take, Route, Frequency, Duration) Notes Start Date End Date Status Vitamin D (Ergocalciferol) 85238 UNIT 1 capsule Orally once a week for 8 weeks for 56 days Patient on MRU, please deliver 09/10/2024 Active Acetaminophen 500 MG 1 capsule as needed Orally every 6 hrs Active Nicotine 21 MG/24HR 1 patch to skin Transdermal Once a day Active Tamsulosin HCl 0.4 MG 1 capsule Orally Once a day Active Lidocaine 5 % 1 patch remove after 12 hours Externally twice a day Clarification, 1 patch every 12 hours. Active Meloxicam 7.5 MG 1 tablet Orally Once a day Not-Taking Miconazole 7 2 % 1 applicatorful twice a day Once a day Active Furosemide 20 MG 1 tablet Orally Once a day for 3 days on unit 09/06/2024 Active Buprenorphine HCl-Naloxone HCl 4-1 mg DISSOLVE 1 FILM UNDER THE TONGUE TWICE A DAY for 7 09/06/2024 Active Mirtazapine 15 MG 1 tablet at bedtime Orally Once a day for 7 days Patient on MRU, please deliver 09/10/2024 Active Methocarbamol 750 MG 1 tablet Orally every 4 hrs Not-Taking Promethazine-DM 6.25-15 MG/5ML 5 mL as needed Orally every 6 hrs for 5 days As needed on unit 09/10/2024 Active Amoxicillin-Pot Clavulanate 875-125 MG 1 tablet Orally every 12 hrs for 7 days on unit, please deliver today 09/10/2024 Active hydrOXYzine HCl 25 MG 1 tablet as needed Orally every 4 hours As needed 08/23/2024 Active QUEtiapine Fumarate 50 MG 1 tablet Orally twice a day for 7 days Patient on MRU, please deliver 08/23/2024 Active tiZANidine HCl 4 MG 1 tablet at bedtime as needed Orally Once a day for 30 days on unit 09/06/2024 Active Pantoprazole Sodium 40 MG 1 tablet 1/2 to 1 hour before morning meal Orally Once a day Active Albuterol Sulfate HFA 108 (90 Base) MCG/ACT 1-2 puff as needed Inhalation every 4 hrs 08/29/2024 Active Social History Tobacco Use: Social History Observation Description Date Details (start date - stop date) Current Smoker NA - NA PRAPARE Question Answer Notes Date Completed/Updated: 08/21/2024 What is your current housing situation? I do not have housing (staying with others, in a hotel, in a mcc, living outside on the street, on a [...] phone, visiting friends or family, going to caodaism or club meetings) 1 or 2 times a week How stressed are you? Stress is when someone feels tense, nervous, anxious, or can\t sleep at night because their mind is troubled Very much In the past year have you sp ent more than 2 nights in a row in a detention, care home, correction center, or juvenile correctional facility? No Are [...] Problem Status W/U Status Risk Notes Problem Vitamin D deficiency (63431976) Vitamin D deficiency (E55.9) Active confirmed Encounters Encounter Location Date Provider Diagnosis [address] [address] 09/10/2024 Adriana Jyoti Mood disorder F39 ; Insomnia G47.00 ; FAVIAN (generalized anxiety disorder) F41.1 and Vitamin D deficiency E55.9 Assessments Encounter Date Diagnosis (ICD Code) Assessment Notes Treatment Notes Treatment Clinical Notes Section Notes 09/10/2024 Mood disorder (ICD-10 - F39) Begin [...] side effects or need for dosage change. 09/10/2024 Insomnia (ICD-10 - G47.00) 09/10/2024 FAVIAN (generalized anxiety disorder) (ICD-10 - F41.1) 09/10/2024 Vitamin D deficiency (ICD-10 - E55.9) 09/10/2024 Other May self-administer medications or be administered own oral medications per [facility] protocols. Provided informed consent with understanding of [...] 25 mg q4hrs PRN -Start Vitamin D 07900 unit once weekly x8 weeks -Start Mirtazapine 15 mg QHS *Labs reviewed with patient, recommended he follow up with his PCP *Sent referral to health navigator for housing and job assistance -Follow up: 1 week, on 10/18/24 [] Hard Rx handed to patient [] Rx phoned into pharmacy [x] Rx faxed/e-prescribed into pharmacy [x] PDMP Reviewed [] GeneSight Reviewed Encour[facility] by [facility] to: [] consider utilizing therapist/counselor/ social services/psychologist, referral given [x] continue with therapist/counselor/ social services/psychologist Psychoeducation: -Treatment options discussed in detail with patient/guardian verbalizing understanding of treatment rationales. -Side effects and benefits of all medications prescribed discussed at length between psychiatric prescribing provider and patient/guardian along with the risks associated of fvfr-cf-lryy interactions, including but not limited to prescription [...] engaged in treatment plan with Adri[facility] Montes [facility]. -Perceiving complete understanding of rationale by patient/guardian and willingness to adhere to formulated plan of care by prescriber with patient/guardian buy-in, willingness to participate actively in plan of care and willing to take charge of own care. -Although geared for female patients, all patients/guardians are informed by prescribing provider of risks of medications that could potentially be taken by female/women within their campo of influence and that women who use [...] a should occur, to consult with provider, MAIL OPENER and/or Nurse Office Worker to determine if prescribed medications should or should not be continued. -Instructions regarding both the medical/pharmacologi belgica and non-pharmacologic aspects of the treatments employed [...] handling stress, was discussed. Plan Of Treatment Medication Medication Name Sig Start Date Stop Date Notes Vitamin D (Ergocalciferol) 15301 UNIT 1 capsule Orally once a week for 8 weeks for 56 days 09/10/2024 Patient on MRU, please deliver Mirtazapine 15 MG 1 tablet at bedtime Orally Once a day for 7 days 09/10/2024 Patient on MRU, please deliver hydrOXYzine HCl 25 MG 1 tablet as needed Orally every 4 hours 08/23/2024 QUEtiapine Fumarate 50 MG 1 tablet Orally twice a day for 7 days 08/23/2024 Patient on MRU, please deliver Treatment Notes Assessment Notes Mood disorder Begin mirtazapine. T joslyn as prescribed. Reviewed purpose - reduce anxiety, improve sleep, decrease depression, and increase appetite; benefits - reduce anxiety, improve sleep, decrease depression, and increase appetite; and risks - including increased appetite, weight gain, increased thoughts of suicidality, and prompting manic episodes in some individuals. Call for problems with medication, side effects or need for dosage change. Other May self-administer medications or be administered own oral medications per [facility] protocols. Provided informed consent with understanding of [...] 25 mg q4hrs PRN -Start Vitamin D 90617 unit once weekly x8 weeks -Start Mirtazapine [...] Adriana Montes [facility] to: [] consider utilizing therapist/counselor/social services/psychologist, referral given [x] continue with therapist/counselor/social services/psychologist Psychoeducation: -Treatment options discussed in detail with patient/guardian verbalizing understanding of treatment rationales. -Side effects and benefits of all medications prescribed discussed at length between psychiatric prescribing provider and patient/guardian along with the risks associated of bkno-ih-egrn interactions, including but not limited to prescription [...] engaged in treatment plan with Adriana Montes [facility]. -Perceiving complete understanding of rationale by patient/guardian and willingness to adhere to formulated plan of care by prescriber with patient/guardian buy-in, willingness to participate actively in plan of care and willing to take charge of own care. -Although geared for female patients, all patients/guardians are informed by prescribing provider of risks of medications that could potentially be taken by female/women within their campo of influence and that women who use [...] a should occur, to consult with provider, MAIL OPENER and/or Nurse Office Worker to determine if prescribed medications should or should not be continued. -Instructions regarding both the medical/pharmacological and non-pharmacologic aspects of the treatments employed [...] the importance of handling stress, was discussed. Referrals Referral Date Details 09/10/2024 09/10/2024, Patient is going to discharge from the MRU on 10/19/24. He would like assistance with housing Next Appt Details Follow Up: 1 Week, Reason: m edication f/u Provider Name:Yunier Sallie Lauren s, 09/12/2024 10:40:00 AM, [address], [place], [address], Provider Name:Tabitha Jennifer Gaytan rt, 09/13/2024 09:00:00 AM, [address], [place], [address], Progress Notes * Steven LAMDOB:1970 ( 54 yo M)Acc No.[id number]:09/10/2024 Patient: Steven ALLEN Provider: Geovani Montes, MSN, MANAGER SIX [employer], PMHNP- :1970 A ge:54 Y S ex:Male Date:09/10/2024 Phone: Address:[address] [place], [place] [phone] Pcp:Jose Gardner Subjective: * Chief Complaints: * 2 Week F/U * HPI: D epression Screening: PHQ-9 L ittle interest or pleasure in doing things N early every day, F eeling down, depressed, or hopeless N early every day, T rouble falling or staying asleep, or sleeping too much N early every day, F eeling tired or having little energy N early every day, P oor appetite or overeating N early every day, F eeling bad about yourself or that you are a failure, or have let yourself or your family down N early every day, T rouble concentrating on things, such as reading the newspaper or watching television?Nearly every day, M oving or speaking so slowly that other people could have noticed; or the opposite, being so fidgety or restless that you have been moving around a lot more than usual N early every day, T houghts that you would be better off or of hurting yourself in some way N ot at all, T otal Score 2 4, I nterpretation S evere Depression. I ntervention D epression Screening Findings P ositive, F ollow-Up for Depression P rescribed psychotropic medications, S uicide Risk Assessment Performed 0 09/10/2024. S jim: Current Mental Health Status / Response to Medications, side effects, efficacy Steven is a 54 y/o M last seen on 08/23/24. Quetiapine and Hydroxyzine were started. How do you feel your current medications are working for your mental health? -Patient states he is still having a lot of anxiety. Discharge date is 09/18/24. Do you take regularly as prescribed or miss days? W eekend breaks w/ stimulant? -takes as prescribed Any side effects from medicine? -denies AIMS score (if applicable): body areas: 0=none, 1=minimal, 2=mild, 3=moderate, 4=severe -Face/Oral: 0 -Extremities (arms/legs): 2 -Trunk (neck/shoulder/hips): 0 Changes to physical health, doctor visit, ER, abnormal labs, new medical condition, new medication since last visit? -labs reviewed with patient: A1C was elevated, CBC indicated potential mild infection (PCP ordered blood culture), Vitamin D was low. Recommended he continue follow up with PCP for treatment. -Suboxone started for MAR, Albuterol started for cough, Furosemide started for lower leg edema, Tizanidine started. -Patient endorses tremors that started before starting Quetiapine that cause him to drop objects frequently. Are you seeing a therapist? -group therapy Review of Psychiatric Systems Sleep: Average hours of sleep per night: -4 Difficulties falling asleep or staying asleep? -both, patient is up all night coughing from respiratory infection Sleeping too much/not needing usual amount of sleep? -denies Appetite/Weight: -poor appetite -163 lbs Energy level? Normal? Tired often throughout day: -low Focus: -poor Motivation: -poor Physical activity: -denies Substance use: -denies Patient rates anxiety as a (0-10): - past 10 -11 at last visit Panic Attacks: -yes Paranoia: -feels like someone is always standing over his shoulder AH/VH: -still seeing shadows, AH has decreased Patient rates depression as a (0-10): - past 10 -12 at last visit Suicidal thoughts/plan or homicidal thoughts: -denies Any thought of self-harm or actual self-harm (like scratching self, cutting) since last visit -denies Any other questions or concerns you would like to discuss today? -denies. * ROS: P sych ROS: Constitutional A ll systems negative unless indicated otherwise.. C ardiovascular H TN. G U R eports sexual dysfunction, enlarged prostate. E ndocrine thyroid issues . P sych R eports depression/anxiety,Reports sleep disturbances. * Medical History: * Surgical History: D enies Past Surgical History * Hospitalization/Major Diagno stic Procedure: o narinder dose 07/2024 * Family History: F ather: . M other: alive. 2 son(s) - healthy. . 1 son has glacoma. * Social History: P rimary Social History: L iving Arrangement L iving Arrangement: H omeless. A lcohol Use A lcohol Use Frequency: N ever. 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 S ocial Determinants: P RAPARE D ate Completed/Updated: 0 08/21/2024, W hat is your current housing situation? I do not have housing (staying with others, in a hotel, in a mcc, living outside on the street, on a beach, or in a park), A re you worried about losing your housing? Y es, W hat is the highest level of school that you have finished? L ess than a high school degree, What is your current work situation? U nemployed and seeking work, I n the past year, have you or any family members you live with been unable to get any of the following when it was really needed? Check all that apply U teodoro,Other (please write in notes), H as lack of transportation kept you from medical appointments, meetings, work or from getting things needed for daily living? Y es, it has kept me from non-medical meetings, appointments, work, or getting things needed for daily living, H ow often do you see or talk to people that you care about and feel close to? (For example: talking to friends on the phone, visiting friends or family, going to caodaism or club meetings) 1 or 2 times a week, H ow stressed are you? Stress is when someone feels tense, nervous, anxious, or can\t sleep at night because their mind is troubled V diane much, I n the past year have you spent more than 2 nights in a row in a detention, care home, correction center, or juvenile correctional facility? N o, A re you a refugee? N o, W hat country are you from[place] D o you feel physically and emotionally safe where you currently live? No, I n the past year, have you been afraid of your partner or ex-partner? Y es P RAPARE Score: 1 4, E nabling Services Provided? Y srinivasa P shaun specify C ase Management Assessment First Visit. T obacco Use: T obacco Control (Standard) T obacco use: C urrent every day smoker, A dditional Findings: Tobacco user H eavy cigarette smoker (20-39 cigs/day). * Medications: T akingBuprenorphine HCl-Naloxone HCl 4-1 mg Film DISSOLVE 1 FILM UNDER THE TONGUE TWICE A DAY Furosemide 20 MG Tablet 1 tablet Orally Once a day , Notes to Pharmacist: on unitMiconazole 7 2 % Cream 1 applicatorful twice a day Once a day Acetaminophen 500 MG Capsule 1 capsule as needed Orally every 6 hrs QUEtiapine Fumarate 25 MG Tablet 1 tablet Orally twice a day hydrOXYzine HCl 25 MG Tablet 1 tablet as needed Orally every 4 hours As neededLidocaine 5 % Patch 1 patch remove after 12 hours Externally twice a day , Notes to Pharmacist: Clarification, 1 patch every 12 hours.Tamsulosin HCl 0.4 MG Capsule 1 capsule Orally Once a day Nicotine 21 MG/24HR Patch 24 Hour 1 patch to skin Transdermal Once a day Albuterol Sulfate HFA 108 (90 Base) MCG/ACT Aerosol Solution 1-2 puff as needed Inhalation every 4 hrs Pantoprazole Sodium 40 MG Tablet Delayed Release 1 tablet 1/2 to 1 hour before morning meal Orally Once a day tiZANidine HCl 4 MG Tablet 1 tablet at bedtime as needed Orally Once a day , Notes to Pharmacist: on unitAmoxicillin-Pot Clavulanate 875-125 MG Tablet 1 tablet Orally every 12 hrs , Notes to Pharmacist: on unit, please deliver todayPromethazine-DM 6.25-15 MG/5ML Syrup 5 mL as needed Orally every 6 hrs As needed, Notes to Pharmacist: on unitTaking Buprenorphine HCl-Naloxone HCl 4-1 mg Film DISSOLVE 1 FILM UNDER THE TONGUE TWICE A DAY Taking Furosemide 20 MG Tablet 1 tablet Orally Once a day , Notes to Pharmacist: on unitTaking Miconazole 7 2 % Cream 1 applicatorful twice a day Once a day Taking Acetaminophen 500 MG Capsule 1 capsule as needed Orally every 6 hrs Taking QUEtiapine Fumarate 25 MG Tablet 1 tablet Orally twice a day Taking hydrOXYzine HCl 25 MG Tablet 1 tablet as needed Orally every 4 hours As neededTaking Lidocaine 5 % Patch 1 patch remove after 12 hours Externally twice a day , Notes to Pharmacist: Clarification, 1 patch every 12 hours.Taking Tamsulosin HCl 0.4 MG Capsule 1 capsule Orally Once a day Taking Nicotine 21 MG/24HR Patch 24 Hour 1 patch to skin Transdermal Once a day Taking Albuterol Sulfate HFA 108 (90 Base) MCG/ACT Aerosol Solution 1-2 puff as needed Inhalation every 4 hrs Taking Pantoprazole Sodium 40 MG Tablet Delayed Release 1 tablet 1/2 to 1 hour before morning meal Orally Once a day Taking tiZANidine HCl 4 MG Tablet 1 tablet at bedtime as needed Orally Once a day , Notes to Pharmacist: on unitTaking Amoxicillin-Pot Clavulanate 875-125 MG Tablet 1 tablet Orally every 12 hrs , Notes to Pharmacist: on unit, please deliver todayTaking Promethazine-DM 6.25-15 MG/5ML Syrup 5 mL as needed Orally every 6 hrs As needed, Notes to Pharmacist: on unitNot- TakingMethocarbamol 750 MG Tablet 1 tablet Orally every 4 hrs Meloxicam 7.5 MG Tablet 1 tablet Orally Once a day Medication List reviewed and reconciled with the patientNot-Taking Methocarbamol 750 MG Tablet 1 tablet Orally every 4 hrs Not-Taking Meloxicam 7.5 MG Tablet 1 tablet Orally Once a day Medication List reviewed and reconciled with the patient * Allergies: H ydrocodone: hivesno[Allergies Verified] Objective: * Vitals: 163 lbs per pt. * Examination: M ental Status Exam: SENSORIUM AND COGNITION A &Ox4. ATTENTION AND CONCENTRATION I mpaired attention/concentration. APPEARANCE A ppropriate. ATTITUDE AND BEHAVIOR C ooperative, Pleasant. EYE CONTACT G ood. AFFECT C ongruent with reported mood. MOOD W orried. SPEECH QUANTITY A ppropriate. SPEECH QUALITY F luent, Appropriate volume. THOUGHT PROCESS C oherent and goal directed. THOUGHT CONTENT R eports paranoia.. LANGUAGE A ppropriate- WNL. MOTOR ACTIVITY N ormal gait, No abnormal movements or tics noted. SUICIDAL IDEATION D enies suicidal ideation. HOMICIDAL IDEATION D enies homicidal ideation. HALLUCINATIONS V isual hallucinations. INSIGHT F air. JUDGMENT F air. FUND OF KNOWLEDGE F air. ABILITY TO PARTICIPATE IN TREATMENT M oderate. WILLINGNESS TO PARTICIPATE IN TREATMENT H igh. SIGNIFICANT FINDINGS REGARDING MENTAL STATUS N one. DEPRESSIVE SYMPTOMS H igh. ELEVATED MOOD SYMPTOMS N ot noted/observed. ANXIETY H igh. Assessment: * Assessment: 1. I nsomnia - G47.00 2 . M ood disorder - F39 (Primary) 3 . G AD (generalized anxiety disorder) - F41.1 4 . V itamin D deficiency - E55.9 Plan: * Treatment: 2. G AD (generalized anxiety disorder) Continue hydrOXYzine HCl Tablet, 25 MG, 1 tablet as needed, Orally, every 4 hours As needed. ? 3. V itamin D deficiency Start Vitamin D (Ergocalciferol) Capsule, 28147 UNIT, 1 capsule, Orally, once a week for 8 weeks, 56 days, 8, Refills 0, Notes to Pharmacist: Patient on MRU, please deliver. 4. O thers Notes: May self-administer medications or be administered own oral medications per [facility] protocols. Provided informed consent with understanding of [...] irregular movements observed during Zoom appt. Plan: -IncreaseQuetiapine to 50 mg BID -Continue Hydroxyzine 25 mg q4hrs PRN -Start Vitamin D 61230 unit once weekly x8 weeks -Start Mirtazapine 15 mg QHS *Labs reviewed with patient, recommended he follow up with his PCP *Sent referral to health navigator for housing and job assistance -Follow up: 1 week, on 10/18/24 [] Hard Rx handed to patient [] Rx phoned into pharmacy [x] Rx faxed/e-prescribed into pharmacy [x] PDMP Reviewed [] GeneSight Reviewed Encouraged by Adriana Montes [facility] to: [] consider utilizing therapist/counselor/social services/psychologist, referral given [x] continue with therapist/counselor/social services/psychologist Psychoeducation: -Treatment options discussed in detail with patient/guardian verbalizing understanding of treatment rationales. -Side effects and benefits of all medications prescribed discussed at length between psychiatric prescribing provider and patient/guardian along with the risks associated of eael-sj-mhyh interactions, including but not limited to prescription [...] and engaged in treatment plan with Adriana Monets [facility]. -Perceiving complete understanding of rationale by patient/guardian and willingness to adhere to formulated plan of care by prescriber with patient/guardian buy-in, willingness to participate actively in plan of care and willing to take charge of own care. -Although geared for female patients, all patients/guardians are informed by prescribing provider of risks of medications that could potentially be taken by female/women within their campo of influence and that women who use [...] a should occur, to consult with provider, MAIL OPENER and/or Nurse Office Worker to determine if prescribed medications should or should not be continued. -Instructions regarding both the medical/pharmacological and non-pharmacologic aspects of the treatments employed [...] the importance of handling stress, was discussed. * Procedure Codes: * Follow Up: 1 Week (Reason: medication f/u) * * OBIOLOGICAL LAB TECHNICIAN Sign off status: Completed true * Provider: Geovani Montes, MSN, MANAGER [employer], PMHNP-BC Date: 09/10/2024 Generated for Printing/Faxing/eTransmitting on: 09/11/2024 06:18 PM MICROBIOLOGICAL LAB TECHNICIAN History and Physical Notes * HPI (History of Present Illness) Category Sub-Category Detail Notes Category Not es Depression Screening PHQ-9 Little inte rest or pleasure in doing things: Nearly every day Feeling down, depressed, or hopeless: Ne kateryna every day Trouble falling or staying asleep, or sl eeping too much: Nearly every day Feeling tired or having little energy: N early every day Poor appetite or overeating: Nearly ever y day Feeling bad about yourself o r that you are a failure, or have let yourself or your family down: Nearly every day Trouble concentrating on thi ngs, such as reading the newspaper or watching television: Nearly every day Moving or speaking so slowly that other people could have noticed; or the opposite, being so fidgety or restless that you have been moving around a lot more than usual: Nearly every day Thoughts that you would be b bety off or of hurting yourself in some way: Not at all Total Score: 24 Interpretation: Severe Depression Intervention Depression Screening Findings: P ositive Follow-Up for Depression: Prescribed psy chotropic medications Suicide Risk Assessment Performed: 09/10 Summary Current Mental Health Status / Response to Medications, side effects, efficacy Steven is a 54 y/o M last seen on 08/23/24. Quetiapine and Hydroxyzine were started. How do you feel your current medications are working for your mental health? -Patient states he is still having a lot of anxiety. Discharge date is 09/18/24. Do you take regularly as prescribed or miss days? Weekend breaks w/ stimulant? -takes as prescribed Any side effects from medicine? -denies AIMS score (if applicable): body areas: 0=none, 1=minimal, 2=mild, 3=moderate, 4=severe -Face/Oral: 0 -Extremities (arms/legs): 2 -Trunk (neck/shoulder/hips): 0 Changes to physical health, doctor visit, ER, abnormal labs, new medical condition, new medication since last visit? -labs reviewed with patient: A1C was elevated, CBC indicated potential mild infection (PCP ordered blood culture), Vitamin D was low. Recommended he continue follow up with PCP for treatment. -Suboxone started for MAR, Albuterol started for cough, Furosemide started for lower leg edema, Tizanidine started. -Patient endorses tremors that started before starting Quetiapine that cause him to drop objects frequently. Are you seeing a therapist? -group therapy Review of Psychiatric Systems Sleep: Average hours of sleep per night: -4 Difficulties falling asleep or staying asleep? -both, patient is up all night coughing from respiratory infection Sleeping too much/not needing usual amount of sleep? -denies Appetite/Weight: -poor appetite -163 lbs Energy level? Normal? Tired often throughout day: -low Focus: -poor Motivation: -poor Physical activity: -denies Substance use: -denies Patient rates anxiety as a (0-10): - past 10 -11 at last visit Panic Attacks: -yes Paranoia: -feels like someone is always standing over his shoulder AH/VH: -still seeing shadows, AH has decreased Patient rates depression as a (0-10): - past 10 -12 at last visit Suicidal thoughts/plan or homicidal thoughts: -denies Any thought of self-harm or actual self-harm (like scratching self, cutting) since last visit -denies Any other questions or concerns you would like to discuss today? -denies Examination Category Sub-Category Detail Notes Category Not es Mental Status Exam SENSORIUM AND COGNITION A&Ox4 ATTENTION AND CONCENTRATION Impaired att ention/concentration APPEARANCE Appropriate ATTITUDE AND BEHAVIOR Cooperative, Pleas ant EYE CONTACT Good AFFECT Congruent with repor madan mood MOOD Worried SPEECH QUANTITY Appropriate SPEECH QUALITY Fluent, Appropriate volume THOUGHT PROCESS Coherent and goal di rected THOUGHT CONTENT Reports paranoia. MOTOR ACTIVITY Normal gait, No abno rmal movements or tics noted SUICIDAL IDEATION Denies suicidal idea tion HOMICIDAL IDEATION Denies homicidal hali ation HALLUCINATIONS Visual hallucination s INSIGHT Fair JUDGMENT Fair FUND OF KNOWLEDGE Fair ABILITY TO PARTICIPATE IN TREATMENT Mode rate WILLINGNESS TO PARTICIPATE I N TREATMENT High SIGNIFICANT FINDINGS REGARDI NG MENTAL STATUS None LANGUAGE Appropriate- WNL DEPRESSIVE SYMPTOMS High ELEVATED MOOD SYMPTOMS Not noted/observe d ANXIETY High Consultation Request Notes Referral Date Referring Provider Referred Provider Not es 09/10/2024 Adriana Montes , Patient is going to discharge from the MRU on 10/19/24. He would like assistance with housing
--- OUTSIDE RECORDS SUMMARY | 2024-09-11 18:19 | XMS_ITS | Clinical Summary ---
Author Organization [facility] Address [address] [place] [address] Care Team Providers Care Risk Management Analyst Name Role Phone Darlene Birch V BELT FINISHER-CONVEYOR WORKER Primary Care Provi edgar Source Comments [facility],non-owned Affiliates and Associated Physician Practices is amultiple site organization consisting of ambulatory clinics and hospital sitesin [place], [place], [place] and [place]. This disclosure is being madepursuant to the Care Everywhere program and may not contain all information available regarding this patient. Last updated 18.[facility] Allergies Active Allergy Reactions Criticality Noted Date [...] naloxone HCl (Narcan) 4 MG/0.1ML nasal spray [place] 1 (one) spray into the nose as needed (May repeat every 2 min in alternating nostrils until emergency medical help arrives for overdose) 2 Each 08/10/2024 Active Encounters Date Type Department Care Team Description 08/09/2024 11:[address] [employer] - 08/10/2024 3:[address] [employer] Emergency ER at [address] [address] Zeb Landers DO Accidental overdose, initial encounter; Opiate overdose, accidental or unintentional, initial encounter (HCC); Hyperglycemia Discharge Disposition: Home or Self Care 08/09/2024 Travel from Last 3 Months Family History Medical History Relation Name Comments Cancer - Other Maternal Grandfather Statu s: Cancer - Other Maternal Grandmother Statu s: Cancer - Breast Mother Status: Aliv e CAD (Coronary Artery Disease) Paternal Aunt Status: Alive CAD (Coronary Artery Disease) Paternal Grandfather Cancer - Other Paternal Grandfather Statu s: CAD (Coronary Artery Disease) Paternal Grandmother Cancer - Other Paternal Grandmother Statu s: Relation Name Status Comments Maternal Grandfather Maternal Grandmother Mother Paternal Aunt Paternal Grandfather Paternal Grandmother Social History Tobacco Use Types Packs/Day Years [...] Comments Blood Pressure 130/85 08/10/2024 2:[address] [employer] Pulse 91 08/10/2024 2:[address] [employer] Temperature 36.7 C (98 F) 08/09/2024 11:[address] [employer] Respiratory Rate 14 08/10/2024 2:[address] [employer] Oxygen Saturation 94% 08/10/2024 2:[address] [employer] Inhaled Oxygen Concentration - - Weight 79.8 kg (176 lb) 06/28/2017 10:[address] [employer] Height 182.9 cm (6') 06/28/2017 10:[address] [employer] Body Mass Index 23.87 06/28/2017 10:[address] [employer] Plan of Treatment Health Maintenance Due Date Last Done Comments [place] (AGES 45-75) - COL ON CA SCREENING 1971 COLON MONITORING 1971 COLONOSCOPY - COLON CA SCREENING 1971 CT COLONOGRAPHY - COLON CA SCREENING 1971 Colorectal Cancer Screening 1971 FIT - COLON CA SCREENING 1971 FLEX SIG - COLON CA SCREENING 1971 HIV SCREENING 1986 HEPATITIS C SCREENING 07/30/1989 DTAP/TDAP/TD VACCINES (1 - Tdap) 1990 HEPATITIS B VACCINE (1 of 3 - 19+ 3-dose series) 1990 PNEUMOCOCCAL VACCINE 50+ (1 of 2 - PCV) 1990 ZOSTER VACCINE (1 of 2) 2021 COVID-19 VACCINE (3 - 2023-2 5 season) 2024 03/06/2021, 01/29/2021 INFLUENZA VACCINE (#1) 2024 DEPRESSION SCREENING 07/18/2024 HIB VACCINE Aged Out No longer eligi ble based on patient's age to complete this topic HPV VACCINE Aged Out No longer eligi ble based on patient's age to complete this topic MENINGOCOCCAL (Group B) VACCINE Aged Out No longer eligible b ased on patient's age to complete this topic MENINGOCOCCAL VACCINE Aged Out No vasiliy ronny eligible based on patient's age to complete this topic Procedures Procedure Name Priority Date/Time Associated Diagnosis Comments XR CHEST 1VW PORTABLE STAT 08/09/2024 11:[address] [employer] Accidental overdose, initial encounter BASIC METABOLIC PANEL (CALCIUM TOTAL) STAT 08/09/2024 11:[address] [employer] CBC W AUTO DIFFERENTIAL STAT 08/09/2024 11:[address] [employer] EKG 12-LEAD STAT 08/09/2024 11:[address] [employer] Accidental overdose, initial encounter from Last 3 Months Results * XR CHEST 1VW PORTABLE (08/09/2024 11:[address] [employer]) Anatomical Region Laterality Modality Chest Computed Radiogr aphy 08/10/2024 8:[address] [employer] Impressions 08/10/2024 8:[address] [employer] IMPRESSION: No acute disease. > Interpreting Provider: Lenin Bullard MD on 08/10/2024 8:20 AM Narrative 08/10/2024 8:[address] [employer] Portable Chest AP History: Poisoning. Overdose. Left [...] CBC W AUTO DIFFERENTIAL (08/09/2024 11:[address] [employer]) WBC 8.4 4.0 - 10.7 x10E9/L 08/09/2024 11:[address] [employer] RBC Count 4.86 4.30 - 5.80 x10E12/L 08/09/2024 11:[address] [employer] Hemoglobin 14.7 13.3 - 17.5 g/dL 08/09/2024 11:[address] [employer] Hematocrit 44.2 38.7 - 51.1 % 08/09/2024 11:[address] [employer] [facility] MCV 90.9 80.0 - 98.0 fL 08/09/2024 11:[address] [employer] [facility] MCH 30.2 26.7 - 33.6 pg 08/09/2024 11:[address] [employer] [facility] MCHC 33.3 31.7 - 36.3 g/dL 08/09/2024 11:[address] [employer] [facility] RDW-CV 13.5 11.3 - 14.8 % 08/09/2024 11:[address] [employer] Platelet Count 304 150 - 420 x10E9/L 08/09/2024 11:[address] [employer] [facility] MPV 9.9 7.8 - 11.4 fL 08/09/2024 11:[address] [employer] [facility] Neutrophil % 60.3 41.0 - 74.0 % 08/09/2024 11:59 PM [facility] Lymphocyte % 29.8 17.0 - 47.0 % 08/09/2024 11:59 PM [facility] Monocyte % 5.4 3.0 - 11.0 % 08/09/2024 11:59 PM [facility] Eosinophil % 3.0 0.0 - 7.0 % 08/09/2024 11:59 PM [facility] Basophil % 0.5 0.0 - 1.6 % 08/09/2024 11:59 PM [facility] Immature Granulocytes % 1.0 0.0 - 1.0 % 08/09/2024 11:59 PM [facility] Neutrophil Absolute 5.08 1.60 - 7.50 x10E9/L 08/09/2024 11:59 PM [facility] Lymphocyte Absolute 2.51 1.00 - 4.40 x10E9/L 08/09/2024 11:59 PM [facility] Monocyte Absolute 0.45 0.15 - 1.00 x10E9/L 08/09/2024 11:59 PM [facility] Eosinophil Absolute 0.25 0.00 - 0.60 x10E9/L 08/09/2024 11:59 PM [facility] Basophil Absolute 0.04 0.00 - 0.13 x10E9/L 08/09/2024 11:59 PM [facility] Blood BLOOD SPECIMEN / Unknown Venipuncture / Unknown 08/09/2024 11:[address] [employer] 08/09/2024 11:48 PM [facility] Zeb Landers DO LAB - HEMATOLOGY ORD ERABLES [facility] [id number] [place] [address] * (ABNORMAL) BASIC METABOLIC PANEL (CALCIUM TOTAL) (08/09/2024 11:39 PM [facility]) Glucose 252(H) 70 - 99 mg/dL 08/10/2024 12:05 AM [facility] Sodium 138 136 - 145 mmol/L 08/10/2024 12:05 AM [facility] Potassium 4.7 3.5 - 5.1 mmol/L 08/10/2024 12:05 AM [facility] Chloride 105 98 - 107 mmol/L 08/10/2024 12:05 AM [facility] CO2 22 22 - 29 mmol/L 08/10/2024 12:05 AM [facility] Calcium 8.5 8.4 - 10.4 mg/dL 08/10/2024 12:05 AM [facility] Anion Gap 11 6 - 16 mmol/L 08/10/2024 12:05 AM [facility] BUN 11 7 - 26 mg/dL 08/10/2024 12:05 AM [facility] Creatinine 1.21 0.72 - 1.25 mg/dL 08/10/2024 12:05 AM [facility] eGFR by CKD-EPI 72(L) >=90 mL/min/1.7 3 m2 08/10/2024 12:05 AM [facility] Blood BLOOD SPECIMEN / Unknown Venipuncture / Unknown 08/09/2024 11:[address] [employer] 08/09/2024 11:[address] [employer] Zeb Landers DO LAB - CHEMISTRY IQRA MEZA [facility] [address] [place] [address] * EKG 12-LEAD (08/09/2024 11:[address] [employer]) [facility] Signature Ventricular Rate 81 BPM [facility] Atrial Rate 81 BPM [facility] P-R Interval 128 ms [facility] QRS Duration ms 90 ms [facility] Q-T Interval ms 380 ms [facility] QTC Calculation (Bezet) 441 ms [facility] Calculated P [place] 62 degrees [facility] Calculated R [place] 53 degrees [facility] Calculated T [place] 67 degrees [facility] Interpretation EKG Normal sinus rhythm Normal ECG No previous ECGs available Confirmed by PAL ISLAS MD ([id number]) on 08/10/2024 4:05:41 PM [facility] 08/09/2024 11:[address] [employer] 08/10/2024 4:[address] [employer] Zeb Landers DO ECG ORDERABLES [facility] from Last 3 Months Care Teams Risk Management Analyst Relationship Specialty Start Date End Date Darlene Birch, V BELT FINISHER-CONVEYOR WORKER PCP - General 02/03/17
== END 2024-09-11 17:04 | disposition home or self-care (01) ==
PROVIDERS: Physician Assistant; Emergency Provider Emergency Medicine
DX: J18.9 Pneumonia, unspecified organism (principal); Z20.822 Contact with and (suspected) exposure to COVID-19
CPT/HCPCS: 36415; 71046; 80053; 81003; 83690; 83880; 85025; 87637; 99283; A9270